=== PATIENT | female | born 1955 | race Hispanic/Latino ===

== ENCOUNTER 2017-03-24 19:04 | Emergency (ER) | payer SELFPAY ==
[~2017-03-24 19:04] MED LIST: ISOVUE-370 76%-LOCM 1 ML ONE
[2017-03-24 20:25] LABS: Hematocrit 38.8 % (36.0-47.0); Mean Platelet Volume 8.1 fL (7.4-10.4); Red Blood Cell (RBC) Count 4.28 mill/uL (4.20-5.40); White Blood Cell (WBC) Count 6.4 thou/uL (4.8-10.8)
[2017-03-24 20:37] LABS: Bilirubin Negative (Negative); Blood, Urine Negative (Negative); Glucose, Urine (Dipstick) Negative (Negative); Ketone, Urine Negative (Negative); Nitrite Negative (Negative); Protein, Urine (Dipstick) Negative (Neg-Trace); Urobilinogen 0.2 mg/dL (0.2-1.0)
[2017-03-24 20:49] LABS: ALT (SGPT) 13 U/L (8-55); AST (SGOT) 17 U/L (5-34); Alkaline Phosphatase 71 U/L (40-150); Anion Gap 10 mmol/L (10-20); BUN (Urea Nitrogen) 17 mg/dL (9.8-20.1); Bilirubin, Total 0.2 mg/dL (0.2-1.2); Calc. Creatinine Clearance 0 mL/min (70-130); Calcium 9.7 mg/dL (7.8-10.44); Carbon Dioxide 30 mmol/L (22-29); Chloride 102 mmol/L (98-107); Estimated GFR-MDRD Greater than 90; Globulin 3.2 g/dL (2.4-3.5); Lipase 12 U/L (8-78)
[2017-03-24 20:58] LABS: Neutrophil 42 % (42-75); Reactive Lymphocytes 7 % (0-10)
--- NOTE | 2017-03-24 22:36 | CT ---
CT ABDOMEN AND PELVIS WITH CONTRAST: Technique: Multiple axial tomograms were obtained through the abdomen and pelvis with IV enhancement. History: Left upper quadrant abdominal pain. History of cholecystectomy. FINDINGS: Lung bases are clear. Liver, spleen and pancreas appear unremarkable. Patient is post cholecystectomy. There is prominence of common bile duct, consistent with post cholecystectomy status. Stomach and duodenum unremarkable. There is a cyst on the superior pole of the right kidney measuring up to 5.6 cm. There is a 3 mm nono bstructing calculus in the upper pole collecting structures of the right kidney. There is no evidence of hydronephrosis. No evidence of ureteral calculus or obstruction. Small bowel loops appear normal. Appendix appears normal. Stool throughout the colon. Uterus and adne xa unremarkable. No adenopathy. IMPRESSION: No acute process identified. POS: [facility]
== END 2017-03-24 23:05 | disposition home or self-care (01) ==
LOC: ERS 19:04
DX: R10.13 Epigastric pain (principal); E11.9 Type 2 diabetes mellitus without complications; J45.909 Unspecified asthma, uncomplicated; Z79.4 Long term (current) use of insulin
CPT/HCPCS: 74177; 80053; 81003; 83690; 85025; 93005

== ENCOUNTER 2017-07-20 09:11 | Inpatient (IN) | payer SELFPAY ==
[2017-07-20 10:33] LABS: #Lymphocytes 1.1 thou/uL (1.20-3.40); #Monocytes 0.2 thou/uL (0.11-0.59); #Neutrophils 3.2 thou/uL (1.40-6.50); %Basophils 0.5 % (0.0-1.0); %Eosinophils 0.6 % (0.0-10.0); %Lymphocytes 23.7 % (21.0-51.0); %Neutrophils 70.2 % (42.0-75.0); Hemoglobin 13.4 g/dL (12.0-16.0); Mean Corpuscular HGB CONC 33.8 g/dL (32.0-36.0); Mean Corpuscular Hemoglobin 30.2 pg (27.0-31.0); Mean Corpuscular Volume 89.4 fl (81.0-99.0); Mean Platelet Volume 7.6 fL (7.4-10.4); Platelet Count 169 thou/uL (130-400); RBC Distribution Width 11.5 % (11.5-14.5); Red Blood Cell (RBC) Count 4.44 mill/uL (4.20-5.40); White Blood Cell (WBC) Count 4.6 thou/uL (4.8-10.8)
[2017-07-20 10:39] LABS: ALT (SGPT) 185 U/L (8-55); AST (SGOT) 65 U/L (5-34); Albumin 3.7 g/dL (3.4-4.8); Alkaline Phosphatase 122 U/L (40-150); Anion Gap 14 mmol/L (10-20); BUN (Urea Nitrogen) 18 mg/dL (9.8-20.1); Bilirubin, Total 0.3 mg/dL (0.2-1.2); CK (CPK) 65 U/L (29-168); Calc. Creatinine Clearance 0 mL/min (70-130); Calcium 8.4 mg/dL (7.8-10.44); Carbon Dioxide 24 mmol/L (23-31); Chloride 105 mmol/L (98-107); Estimated GFR-MDRD Greater than 90; Globulin 2.8 g/dL (2.4-3.5); Glucose 209 mg/dL (80-115); Potassium 3.6 mmol/L (3.5-5.1); Protein, Total 6.5 g/dL (6.0-8.3); Sodium 139 mmol/L (136-145)
[2017-07-20 10:45] LABS: CKMB 2.1 ng/mL (0-6.6); Troponin I Less than 0.010 ng/mL (< 0.028)
[2017-07-20] MEDS ORDERED: Ondansetron ODT 4 MG TAB SL PRN (13:15)
[2017-07-20] MEDS ORDERED: Acetaminophen 325 MG TAB PO PRN (13:15)
[2017-07-20] MEDS ORDERED: Ondansetron HCl/PF 4 MG/2 ML Vial IVP PRN (13:15)
[2017-07-20 13:45] VITALS: BMI 27.1
[2017-07-20 14:00] LABS: Troponin I Less than 0.010 ng/mL (< 0.028)
[2017-07-20] MEDS ORDERED: Dextrose 5% in Water 1,000 ML IV PRN ×2 (16:26→16:29)
[2017-07-20] MEDS ORDERED: Dextrose 50% Abboject 50 ML SYRINGE SLOW IVP PRN ×2 (16:26→16:29)
[2017-07-20] MEDS ORDERED: Insulin Regular 300 UNITS/3 ML VIAL SC PRN (16:29)
--- NOTE | 2017-07-20 16:59 | HP ---
CHIEF COMPLAINT: Tiredness, dizziness and fall. HISTORY OF PRESENT ILLNESS: This is a 62-year-old female patient, whose is here in the [facility], who for the past 2 days or so has been feeling progressive weakness, tiredness and falling down, associated with one episode of vomiting and poor appetite. The patient presented to the ER where nargis tan was noted to have atrial fibrillation with rapid ventricular response. Otherwise, no other remarka ble findings except elevated liver enzymes. The patient is now being admitted on Cardizem drip for f urther management. PAST MEDICAL AND SURGICAL HISTORY: Significant for type 2 diabetes, hypertension and status post cho lecystectomy. MEDICATIONS: Reviewed as documented on [facility]. SOCIAL HISTORY: Denies alcohol, tobacco or illicit drug use. Liver enzymes concerning for alcoholic hepatitis. The patient denies alcohol consumption. FAMILY HISTORY: Not significantly related to the presenting illness. PHYSICAL EXAMINATION: GENERAL: The patient was found not to be in any respiratory distress, hemodynamically stable. VITAL SIGNS: Afebrile, temperature 98.8, pulse 76, respiratory rate of 18, O2 saturation 100% with b lood pressure 150/56. HEENT: Unremarkable. Moist oral mucosa. NECK: Supple. No conjunctival injection or icterus. CARDIOVASCULAR SYSTEM: First and second heart sounds were heard. RESPIRATORY SYSTEM: Clear to auscultation. DIGESTIVE SYSTEM: Revealed some tenderness over the epigastric and right upper quadrant area. EXTREMITIES: No peripheral edema. SKIN: No new gross rash. LYMPHATICS: No peripheral lymphadenopathy. IMPRESSION: 1. Atrial fibrillation with rapid ventricular response, doing well on Cardizem drip. 2. Abdominal pain, query cause. The patient is status post cholecystectomy; however, cannot complet anaid rule out hepatitis. 3. Diabetes mellitus type 2. 4. Hypertension. PLAN: 1. Cardiology consultation. 2. Cardizem drip, which I do believe will easily be weaned off. 3. Hepatitis profile. 4. Further management will be dependent on the clinical course. We will fully anticoagulate this pa tient at this point pending when Cardiology will evaluate the patient and make their recommendation.
[2017-07-20 17:14] LABS: Troponin I 0.029 ng/mL (< 0.028)
[2017-07-20 17:27] LABS: HBCM Index 0.08 S/CO (0-0.79); HBSAg Index 0.27 S/CO (0-0.99); Hep A IgM AB Non-Reactive (NonReactive); Hep A IgM S/CO 0.16 S/CO (0-0.79); Hep B Surf Ag Non-Reactive S/CO (NonReactive); Hep C IgG Ab Non-Reactive (NonReactive); Hep C Index 0.08 S/CO (0-0.79); Hepatitis B Core IGM Abs Non-Reactive (NonReactive); Thyroid Stimulating Hormone 1.5528 uIU/mL (0.35-4.94)
[2017-07-20] MEDS: Gabapentin 100 MG CAP PO SCH (20:37)
[2017-07-20] MEDS: Famotidine 20 MG TAB PO SCH (20:37)
[2017-07-20] MEDS: Insulin Detemir 100 UNITS/ML 20 UNITS in Pre-Filled Syringe SC SCH (20:38)
[2017-07-20] MEDS: Enoxaparin Sodium 60 MG/0.6 ML SYRINGE SC SCH (20:38)
[2017-07-20] MEDS: Insulin Regular 300 UNITS/3 ML VIAL SC SCH (20:39)
[2017-07-20] MEDS ORDERED: Non-Formulary Item 1 EACH (Levemir Flexpen [Levemir Flexpen] 20 UNITS) SC SCH (21:00)
[2017-07-21 04:49] LABS: Anion Gap 11 mmol/L (10-20); BUN (Urea Nitrogen) 22 mg/dL (9.8-20.1); Calc. Creatinine Clearance 92 mL/min (70-130); Calcium 8.7 mg/dL (7.8-10.44); Carbon Dioxide 26 mmol/L (23-31); Chloride 108 mmol/L (98-107); Estimated GFR-MDRD Greater than 90; Potassium 3.3 mmol/L (3.5-5.1); Sodium 142 mmol/L (136-145)
[2017-07-21 04:52] LABS: Glucose 54 mg/dL (80-115)
[2017-07-21] MEDS ORDERED: Enoxaparin Sodium 40 MG/0.4 ML SYRINGE SC SCH (09:00)
[2017-07-21] MEDS: Aspirin 81 mg Enteric Coated Tablet PO SCH (09:02)
[2017-07-21] MEDS: Gabapentin 100 MG CAP PO SCH ×3 (09:02→21:20)
[2017-07-21] MEDS: Insulin Regular 300 UNITS/3 ML VIAL SC SCH ×2 (09:03→15:00)
[2017-07-21] MEDS: Famotidine 20 MG TAB PO SCH ×2 (09:03→21:20)
[2017-07-21] MEDS: Insulin Detemir 100 UNITS/ML 20 UNITS in Pre-Filled Syringe SC SCH (09:04)
[2017-07-21] MEDS: Enoxaparin Sodium 60 MG/0.6 ML SYRINGE SC SCH ×2 (09:04→21:19)
--- NOTE | 2017-07-21 10:44 | PDOC.PN ---
- Subjective Encounter Start Date: 07/21/17 Encounter Start Time: 10:42 Patient seen and examined, no new issues, no family at bedside, all questions answered. - Objective Resuscitation Status: Resuscitation Status FULL:Full Resuscitation MAR Reviewed: Yes Vital Signs & Weight: Vital Signs (12 hours) Temp Pulse Resp BP Pulse Ox 07/21/17 08:23 98.2 F 80 14 100 07/21/17 07:26 98.2 F 80 14 131/67 100 Weight Weight 138 lb 14.4 oz I&O: 07/20/17 07/21/17 07/22/17 06:59 06:59 06:59 Intake Total 155 Balance 155 Result Diagrams: 07/20/17 10:08 07/21/17 03:26 Additional Labs: Accuchecks 07/21/17 07/21/17 07/21/17 09:03 05:40 04:59 POC Glucose 278 H 117 H 52 L* 07/20/17 07/20/17 20:42 16:36 POC Glucose 286 H 130 H Phys Exam - Physical Examination Constitutional: NAD HEENT: PERRLA, moist MMs, sclera anicteric Neck: no nodes, no JVD Respiratory: no wheezing, no rales, no rhonchi Cardiovascular: no significant murmur, no rub IRRR Gastrointestinal: soft, non-tender, no distention Musculoskeletal: no edema, pulses present Dx/Plan (1) Paroxysmal atrial fibrillation Code(s): I48.0 - PAROXYSMAL ATRIAL FIBRILLATION Status: Acute (2) HTN (hypertension) Code(s): I10 - ESSENTIAL (PRIMARY) HYPERTENSION Status: Acute (3) DM II (diabetes mellitus, type II), controlled Code(s): E11.9 - TYPE 2 DIABETES MELLITUS WITHOUT COMPLICATIONS Status: Acute - Plan * cardio following * cntinue current medical management for now * possible cardioversion in AM, per patient * no changes in plan for now * DC plans in 24-48hrs if patient doing well and once cleared by cardiology * case and plan d/w patient at length, in guatem[place], she understands and agrees with this plan.
--- NOTE | 2017-07-21 11:15 | CON ---
DATE OF CONSULTATION: 07/21/2017 REASON FOR CONSULTATION: [facility] Care. CONSULTING PHYSICIAN: Dr. Palmer. HISTORY OF PRESENT ILLNESS: This is a 62-year-old female who presented yesterday with new onset atri al fibrillation with a rapid ventricular response. Symptoms started yesterday and characterized by w eakness and fatigue. She was placed on a Cardizem drip and appears to have converted over to a sinus rhythm. She has no complaints of chest pain or shortness of breath at the current time. PAST MEDICAL HISTORY: 1. Type 2 diabetes mellitus. 2. Hypertension. 3. Question of atrial fibrillation previously. PAST SURGICAL HISTORY: Cholecystectomy. SOCIAL HISTORY: Nonsmoker. Does not consume alcohol. She does daycare work. FAMILY MEDICAL HISTORY: Unremarkable. MEDICATIONS PRIOR TO ADMISSION: Gabapentin, Levemir insulin, aspirin, losartan/hydrochlorothiazide a nd Ventolin dose inhaler. REVIEW OF SYSTEMS: Twelve point review of systems otherwise negative. PHYSICAL EXAMINATION: VITAL SIGNS: Temperature 98.2, pulse 80, respirations 14, O2 sat 100%, blood pressure 131/67. GENERAL: She is a healthy appearing female, in no acute distress. HEENT: Pupils react. Sclerae icteric. Oropharynx clear. NECK: No palpable adenopathy, no JVD, no bruits. LUNGS: Clear. CARDIOVASCULAR: S1, S2 regular without murmur. ABDOMEN: Soft, nontender, nondistended. EXTREMITIES: No clubbing, cyanosis, or edema. NEUROLOGIC: Grossly intact. SKIN: Shows no lesions, bruising or jaundice. LABORATORY DATA: White blood cell count 4.6, hematocrit 39.7, platelet count 169. Sodium 142, potas sium 3.3, chloride 108, CO2 26, BUN 22, creatinine 0.6, glucose 54. ASSESSMENT: Atrial fibrillation with controlled ventricular response - appears to convert to sinus r hythm. RECOMMENDATIONS: 1. Cardiology consultation. 2. No acute pulmonary critical care recommendations. The patient can be transferred to the telemetry unit at any time given bed availability.
--- NOTE | 2017-07-21 13:44 | CON ---
DATE OF CONSULTATION: 07/21/2017 REASON FOR CONSULTATION: Atrial fibrillation. HISTORY OF PRESENT ILLNESS: Ms. Bolanos is a pleasant 62-year-old woman who recently presented with p alpitations in addition to diaphoresis. She states her blood sugar was low at the time. She also tubbs d an episode of vomiting on Friday. No chest pain or pressure noted. No other associated factors pr esent. She is now sinus rhythm. PAST MEDICAL HISTORY: Diabetes mellitus and hypertension. PAST SURGICAL HISTORY: Cholecystectomy. SOCIAL HISTORY: No current tobacco or alcohol use. FAMILY HISTORY: Negative for CAD. REVIEW OF SYSTEMS: Ten-point review of systems is reviewed and is as above negative. PHYSICAL EXAMINATION: VITAL SIGNS: Blood pressure 125/54, pulse , temperature 98.7. GENERAL: Patient is a pleasant female who is in no acute distress. The patient appears her stated age. NEUROLOGIC: The patient is alert and oriented times 3 with no focal neurologic deficits. HEENT: Sclerae without icterus. Mouth has moist mucous membranes with normal pallor. NECK: No JVD. Carotid upstroke brisk. No bruits bilaterally. LUNGS: Clear to auscultation with unlabored respirations. BACK: No scoliosis or kyphosis. CARDIAC: Regular rate and rhythm with normal S1 and S2. No S3 or S4 noted. No significant rubs, murmurs, thrills, or gallops noted throughout the precordium. PMI is not displaced. There is no parasternal heave. ABDOMEN: Soft, nontender, nondistended. No peritoneal signs present. No hepatosplenomegaly. No abnormal striae. EXTREMITIES: 2+ femoral and 2+ dorsalis pedis pulses. No cyanosis, clubbing, or edema. SKIN: No gross abnormalities. PERTINENT LABS: Hemoglobin 13.4, creatinine 0.64. Troponin negative. IMPRESSION: Atrial fibrillation. RECOMMENDATIONS: The patient's CHADS-VASc score is greater than 2. We recommend anticoagulation the rapy. Echo Doppler is pending. We would also recommend a noninvasive stress study to assess for any areas of ischemia. If her LVEF is normal and a stress study is normal, I would recommend beta block er therapy in addition to anticoagulation treatment. Otherwise, I have no recommendations.
[2017-07-21] MEDS ORDERED: Insulin Regular 300 UNITS/3 ML VIAL SC PRN (16:53)
[2017-07-22] MEDS: Insulin Detemir 100 UNITS/ML 20 UNITS in Pre-Filled Syringe SC SCH ×2 (00:30→08:29)
[2017-07-22] MEDS: Enoxaparin Sodium 60 MG/0.6 ML SYRINGE SC SCH (08:28)
[2017-07-22] MEDS: Famotidine 20 MG TAB PO SCH (08:28)
[2017-07-22] MEDS: Gabapentin 100 MG CAP PO SCH ×2 (08:28→16:00)
[2017-07-22] MEDS: Aspirin 81 mg Enteric Coated Tablet PO SCH (08:28)
--- NOTE | 2017-07-22 13:25 | PRG ---
DATE OF SERVICE: 07/22/2017 SUBJECTIVE: Luis Miguel is better, less shortness of breath. OBJECTIVE: VITAL SIGNS: Sats 100% on 2 liters, temperature 97, pulse 90, respiratory rate 18, blood pressure 13 0/75. CHEST: No wheezing. CARDIAC: Normal S1 and S2. ABDOMEN: Soft and no masses. LABORATORY: Electrolytes normal, creatinine normal. ASSESSMENT: Pulmonary embolism, deep venous thrombosis. Eliquis. Discharge home anytime. Follow up with the primary care physician. Suggest minimum of 6 months anticoagulation.
[2017-07-22 15:48] VITALS: BP 144/71; TEMP 98.2
--- NOTE | 2017-07-22 19:03 | CON ---
DATE OF SERVICE: 07/22/2017 SUBJECTIVE: Ms. Bolanos is doing well. She continues to be in sinus rhythm. Her LVEF appears normal on recent echo. OBJECTIVE: VITAL SIGNS: Blood pressure 120/70, pulse 80, respirations 20. GENERAL: Patient is a pleasant female who is in no acute distress. The patient appears her stated age. NEUROLOGIC: The patient is alert and oriented times 3 with no focal neurologic deficits. HEENT: Sclerae without icterus. Mouth has moist mucous membranes with normal pallor. NECK: No JVD. Carotid upstroke brisk. No bruits bilaterally. LUNGS: Clear to auscultation with unlabored respirations. BACK: No scoliosis or kyphosis. CARDIAC: Regular rate and rhythm with normal S1 and S2. No S3 or S4 noted. No significant rubs, murmurs, thrills, or gallops noted throughout the precordium. PMI is not displaced. There is no parasternal heave. ABDOMEN: Soft, nontender, nondistended. No peritoneal signs present. No hepatosplenomegaly. No abnormal striae. EXTREMITIES: 2+ femoral and 2+ dorsalis pedis pulses. No cyanosis, clubbing, or edema. SKIN: No gross abnormalities. HEENT: No scoliosis or kyphosis. CARDIAC: No gross abnormalities. IMPRESSION: Atrial fibrillation. RECOMMENDATIONS: Ms. Bolanos's CHADS score is greater than 2. She has a history of hypertension and diabetes. I have discussed anticoagulation type with Ms. Bolanos. I also discussed novel oral antico agulation therapy versus Coumadin. She is amenable to a novel oral anticoagulation therapy. I did d iscuss the financial concern. I will give her samples. She will follow up in the office in the next 1-2 weeks. At that point, she will decide whether she want to proceed with a novel oral anticoagula tion therapy or Coumadin.
[2017-07-22] MEDS ORDERED: Metoprolol Tartrate 25 MG TAB PO SCH (21:00)
[2017-07-23] MEDS ORDERED: Rivaroxaban 10 MG TAB PO SCH (09:00)
== END 2017-07-22 16:06 | disposition home or self-care (01) | DRG 308 ==
LOC: ERS 09:11 → IMCU/EMU 11:17 → 2SE 07-22 06:35
PROVIDERS: ADMIT Internal Medicine Nephrology; ATTEND Internal Medicine Nephrology
DX: I48.0 Paroxysmal atrial fibrillation (principal); I26.99 Other pulmonary embolism without acute cor pulmonale; T68.XXXA Hypothermia, initial encounter; I95.9 Hypotension, unspecified; E11.9 Type 2 diabetes mellitus without complications; I82.409 Acute embolism and thrombosis of unspecified deep veins of unspecified lower extremity; I10 Essential (primary) hypertension
CPT/HCPCS: 36415; 36416; 80048; 80053; 80074; 82550; 82553; 84443; 84484; 85025; 93005; 93306; 96365; 96366; J1650; J1815

== ENCOUNTER 2017-11-04 00:41 | Emergency (ER) | payer SELFPAY ==
[2017-11-04 01:27] LABS: #Eosinphils 0.3 thou/uL (0.0-0.7); #Lymphocytes 1.8 thou/uL (1.20-3.40); #Monocytes 0.6 thou/uL (0.11-0.59); #Neutrophils 4.9 thou/uL (1.40-6.50); %Basophils 0.3 % (0.0-1.0); %Eosinophils 3.6 % (0.0-10.0); %Lymphocytes 23.3 % (21.0-51.0); %Monocytes 7.3 % (0.0-10.0); %Neutrophils 65.4 % (42.0-75.0); Hemoglobin 12.5 g/dL (12.0-16.0); Mean Corpuscular HGB CONC 34.7 g/dL (32.0-36.0); Mean Corpuscular Hemoglobin 30.3 pg (27.0-31.0); Mean Corpuscular Volume 87.3 fL (78.0-98.0); Mean Platelet Volume 7.7 fL (7.4-10.4); Platelet Count 170 thou/uL (130-400); RBC Distribution Width 11.6 % (11.5-14.5); Red Blood Cell (RBC) Count 4.13 mill/uL (4.20-5.40); White Blood Cell (WBC) Count 7.5 thou/uL (4.8-10.8)
[2017-11-04 01:41] LABS: ALT (SGPT) 18 U/L (8-55); AST (SGOT) 17 U/L (5-34); Albumin 3.7 g/dL (3.4-4.8); Alkaline Phosphatase 82 U/L (40-150); Anion Gap 9 mmol/L (10-20); BUN (Urea Nitrogen) 24 mg/dL (9.8-20.1); Bilirubin, Total 0.4 mg/dL (0.2-1.2); Calc. Creatinine Clearance 0 mL/min (70-130); Calcium 9.4 mg/dL (7.8-10.44); Carbon Dioxide 30 mmol/L (23-31); Chloride 101 mmol/L (98-107); Estimated GFR-MDRD 63; Globulin 3.1 g/dL (2.4-3.5); Glucose 442 mg/dL (80-115); Lipase 11 U/L (8-78); Potassium 3.8 mmol/L (3.5-5.1); Protein, Total 6.8 g/dL (6.0-8.3); Sodium 136 mmol/L (136-145)
[2017-11-04 01:45] LABS: CKMB 1.2 ng/mL (0-6.6); Troponin I Less than 0.010 ng/mL (< 0.028)
[2017-11-04 02:32] LABS: Base Excess-Venous 3.2 mmol/L (0 (+/- 2.5)); Bicarbonate (HCO3v) 29.5 mmol/L (1.0-85.0); CO2 Tension (PvCO2) 50.7 mmHg (41.0-51.0); Calcium, Ionized 1.23 mmol/L (1.12-1.32); Hemoglobin - Calc 13.2 g/dL (12.0-18.0); O2 Tension (PvO2) 66.4 mmHg (35.0-45.0); Potassium 3.9 mmol/L (3.4-4.7); pH (Venous) 7.373 (7.35-7.45); vO2 Saturation-calc 91.9 % (94-98)
[2017-11-04] MEDS ORDERED: Insulin Regular 300 UNITS/3 ML VIAL ONE (02:54)
[2017-11-04 03:34] LABS: Bilirubin Negative (Negative); Blood, Urine Small (Negative); Clarity CLEAR (Clear); Glucose, Urine (Dipstick) >=1000 mg/dL (Negative); Leukocyte Negative (Negative); Nitrite Negative (Negative); Protein, Urine (Dipstick) Negative (Neg-Trace); Urobilinogen 0.2 mg/dL (0.2-1.0)
[2017-11-04 03:37] LABS: Bacteria/HPF None Seen HPF (None Seen); Hyaline Casts/LPF 0-3 HYALINE CAST LPF (0-3 Hyaline); Squamous Epithelial 0-3 HPF (0-3); WBC/HPF 0-3 HPF (0-3)
[2017-11-04 03:41] LABS: Specific Gravity, Urine 1.045 (1.002-1.036)
--- NOTE | 2017-11-04 09:01 | RAD ---
PORTABLE CHEST ONE VIEW: Date: 11-04-17 Time: 1:04 p.m. History: Chest pain. FINDINGS: Comparison is made with exam of 02-23-16. The heart size is normal. The aorta is tortuous. The lungs are well expanded without focal areas of c onsolidation, pneumothorax, or pleural effusions. IMPRESSION: No acute process. POS: [facility]
--- NOTE | 2017-11-04 10:13 | CT ---
PRELIMINARY REPORT/[facility]/EMERGENTY AFTER-HOURS PROCEDURE CT Abdomen and Pelvis With Intravenous Contrast CLINICAL HISTORY: 62 years old, female; Pain; Abdominal pain; Localized; Right lower quadrant (rlq); Prior surgery; Pat ient HX: Abdominal pain rlq - onset 2330 woke her up from sleep. Surgical HX of cholecystectomy TECHNIQUE: Axial computed tomography images of the abdomen and pelvis with intravenous contrast. Coronal reforma tted images were created and reviewed. COMPARISON: No relevant prior studies available. FINDINGS: Lower thorax: No acute findings. ABDOMEN: Liver: Hepatic steatosis. Gallbladder and bile ducts: Prior cholecystectomy. Pancreas: Normal. No ductal dilation. Spleen: Normal. No splenomegaly. Adrenals: Normal. No mass. Kidneys and ureters: Right renal cyst. 2 mm obstructing stone in the proximal right ureter causing mi ld obstructive uropathy. Stomach and bowel: Normal. No obstruction. No mucosal thickening. Appendix: Normal appendix. PELVIS: Bladder: Unremarkable as visualized. Reproductive: Uterus and ovaries are unremarkable. ABDOMEN and PELVIS: Intraperitoneal space: Normal. No free air. No significant fluid collection. Bones/joints: No acute fracture. No dislocation. Soft tissues: Unremarkable. Vasculature: Normal. No abdominal aortic aneurysm. Lymph nodes: Normal. No enlarged lymph nodes. IMPRESSION: 2 mm obstructing stone in the proximal right ureter causing mild obstructive uropathy. Thank you for allowing us to participate in the care of your patient. Dictated and Authenticated by: David Grande MD 11/04/2017 3:41 AM Central Time ([place] & [place]) FINAL REPORT EMERGENT AFTER HOURS CT ABDOMEN AND PELVIS WITH IV CONTRAST: DATE: 11/24/17. HISTORY: Right lower quadrant abdominal pain. Surgical history of cholecystectomy. COMPARISON: 03/24/17. IMPRESSION: 1. Partially obstructing right proximal ureteral calculus in the region of right ureteropelvic junct ion measuring 30 mm. There is resultant mild right hydronephrosis. 2. Right renal cyst. 3. Cholecystectomy. 4. No Ct evidence of appendicitis. 5. Colonic diverticulosis. A small amount of retained fecal material is seen within the colon. 6. There has been no other interval change when compared to the prior exam. 7. Findings are in agreement with the preliminary report by Marcia. POS: [facility]
[2017-11-04] MEDS ORDERED: ISOVUE-370 76%-LOCM 1 ML ONE (10:34)
--- NOTE | 2017-11-08 13:09 | EKG ---
Test Reason : Blood Pressure : / mmHG Vent. Rate : 074 BPM Atrial Rate : 074 BPM P-R Int : 170 ms QRS Dur : 084 ms QT Int : 420 ms P-R-T Axes : 036 -05 009 degrees QTc Int : 466 ms Normal sinus rhythm Normal ECG Confirmed by RAFAT OLIVAREZ ([id number]), editor news GUNNER THOMAS ([id number]) on 11/08/2017 1:09:46 PM Referred By: SHER Confirmed By:RAFAT OLIVAREZ
== END 2017-11-04 04:05 | disposition home or self-care (01) ==
LOC: ERS 00:41
DX: N13.2 Hydronephrosis with renal and ureteral calculous obstruction (principal); E11.9 Type 2 diabetes mellitus without complications; R31.9 Hematuria, unspecified; Z79.4 Long term (current) use of insulin; Z79.899 Other long term (current) drug therapy
CPT/HCPCS: 36415; 36416; 71045; 74177; 80053; 81003; 81015; 82010; 82330; 82553; 82803; 83690; 84484; 85025; 87086; 93005; 96361; 96372; 96374; J1815; J2270

== ENCOUNTER 2017-11-15 17:54 | Emergency (ER) | payer SELFPAY ==
[2017-11-15 18:19] LABS: Bilirubin Negative (Negative); Blood, Urine Small (Negative); Clarity CLEAR (Clear); Glucose, Urine (Dipstick) >=1000 mg/dL (Negative); Leukocyte Negative (Negative); Nitrite Negative (Negative); Protein, Urine (Dipstick) Negative (Neg-Trace); Specific Gravity, Urine 1.014 (1.002-1.036); Urobilinogen 0.2 mg/dL (0.2-1.0)
[2017-11-15 18:22] LABS: Bacteria/HPF None Seen HPF (None Seen); Hyaline Casts/LPF 0-3 HYALINE CAST LPF (0-3 Hyaline); Squamous Epithelial None Seen HPF (0-3); WBC/HPF None Seen HPF (0-3)
[2017-11-15 18:26] LABS: #Eosinphils 0.2 thou/uL (0.0-0.7); #Lymphocytes 2.4 thou/uL (1.20-3.40); #Monocytes 0.6 thou/uL (0.11-0.59); #Neutrophils 5.8 thou/uL (1.40-6.50); %Basophils 0.5 % (0.0-1.0); %Eosinophils 1.9 % (0.0-10.0); %Lymphocytes 26.7 % (21.0-51.0); %Monocytes 6.2 % (0.0-10.0); %Neutrophils 64.7 % (42.0-75.0); Mean Corpuscular Hemoglobin 30.3 pg (27.0-31.0); Mean Corpuscular Volume 86.5 fL (78.0-98.0); Mean Platelet Volume 7.2 fL (7.4-10.4); Platelet Count 211 thou/uL (130-400); RBC Distribution Width 11.6 % (11.5-14.5); White Blood Cell (WBC) Count 8.9 thou/uL (4.8-10.8)
[2017-11-15 18:45] LABS: ALT (SGPT) 30 U/L (8-55); AST (SGOT) 15 U/L (5-34); Albumin 4.1 g/dL (3.4-4.8); Alkaline Phosphatase 97 U/L (40-150); Anion Gap 14 mmol/L (10-20); BUN (Urea Nitrogen) 17 mg/dL (9.8-20.1); Bilirubin, Total 0.6 mg/dL (0.2-1.2); Calc. Creatinine Clearance 0 mL/min (70-130); Calcium 9.6 mg/dL (7.8-10.44); Carbon Dioxide 26 mmol/L (23-31); Chloride 98 mmol/L (98-107); Estimated GFR-MDRD 63; Glucose 348 mg/dL (80-115); Potassium 4.3 mmol/L (3.5-5.1); Protein, Total 7.1 g/dL (6.0-8.3); Sodium 134 mmol/L (136-145)
[2017-11-15] MEDS ORDERED: Ketorolac Tromethamine 30 MG/ML VIAL ONE (20:23)
== END 2017-11-15 20:49 | disposition home or self-care (01) ==
LOC: ERS 17:54
DX: N13.2 Hydronephrosis with renal and ureteral calculous obstruction (principal); E11.9 Type 2 diabetes mellitus without complications; J45.909 Unspecified asthma, uncomplicated; Z79.899 Other long term (current) drug therapy; Z79.01 Long term (current) use of anticoagulants; Z79.4 Long term (current) use of insulin
CPT/HCPCS: 36415; 80053; 81003; 81015; 85025; 96374; J1885

== ENCOUNTER 2018-03-20 19:46 | Emergency (ER) | payer SELFPAY ==
[2018-03-20 20:18] LABS: #Basophils 0.1 thou/uL (0.0-0.2); #Eosinphils 0.2 thou/uL (0.0-0.7); #Lymphocytes 2.8 thou/uL (1.20-3.40); #Monocytes 0.7 thou/uL (0.11-0.59); #Neutrophils 5.1 thou/uL (1.40-6.50); %Basophils 0.8 % (0.0-1.0); %Monocytes 7.4 % (0.0-10.0); %Neutrophils 57.8 % (42.0-75.0); Hemoglobin 14.5 g/dL (12.0-16.0); Mean Corpuscular HGB CONC 33.4 g/dL (32.0-36.0); Mean Corpuscular Hemoglobin 28.9 pg (27.0-31.0); Mean Corpuscular Volume 86.7 fL (78.0-98.0); Mean Platelet Volume 8.4 fL (7.4-10.4); Platelet Count 185 thou/uL (130-400); RBC Distribution Width 12.1 % (11.5-14.5); Red Blood Cell (RBC) Count 5.02 mill/uL (4.20-5.40); White Blood Cell (WBC) Count 8.8 thou/uL (4.8-10.8)
[2018-03-20 20:41] LABS: ALT (SGPT) 19 U/L (8-55); AST (SGOT) 19 U/L (5-34); Albumin 4.1 g/dL (3.4-4.8); Alkaline Phosphatase 104 U/L (40-150); Anion Gap 15 mmol/L (10-20); BUN (Urea Nitrogen) 22 mg/dL (9.8-20.1); Bilirubin, Total 0.3 mg/dL (0.2-1.2); CK (CPK) 76 U/L (29-168); Calc. Creatinine Clearance 0 mL/min (70-130); Calcium 9.7 mg/dL (7.8-10.44); Carbon Dioxide 30 mmol/L (23-31); Chloride 100 mmol/L (98-107); Estimated GFR-MDRD 79; Globulin 3.6 g/dL (2.4-3.5); Glucose 204 mg/dL (80-115); Lipase 12 U/L (8-78); Potassium 3.9 mmol/L (3.5-5.1); Protein, Total 7.7 g/dL (6.0-8.3); Sodium 141 mmol/L (136-145)
[2018-03-20 20:43] LABS: CKMB 1.9 ng/mL (0-6.6); Troponin I Less than 0.010 ng/mL (< 0.028)
--- NOTE | 2018-03-20 21:13 | RAD ---
PA AND LATERAL VIEWS OF THE CHEST: 03/20/18 HISTORY: Chest pain. FINDINGS: Comparison made with the exam of 07/21/13. The heart size is normal. The lungs are expanded without focal areas of consolidation, pneumothoraces or pleural effusions. No acute osseous abnormalities are seen. IMPRESSION: No radiographic evidence of acute cardiopulmonary process. POS: [facility]
[2018-03-20] MEDS ORDERED: Ketorolac Tromethamine 30 MG/ML VIAL ONE (22:53)
[2018-03-20] MEDS ORDERED: Lidocaine Viscous Sol 2% 15 ml UD Cup ONE (22:54)
[2018-03-20] MEDS ORDERED: Mag-Al 1200 mg/1200 mg/30 ML UDCUP ONE (22:54)
[2018-03-20 23:55] LABS: Troponin I Less than 0.010 ng/mL (< 0.028)
== END 2018-03-21 00:56 | disposition home or self-care (01) ==
LOC: ERS 19:46
DX: R07.89 Other chest pain (principal); M62.838 Other muscle spasm; R11.0 Nausea; I48.91 Unspecified atrial fibrillation; E11.9 Type 2 diabetes mellitus without complications; J45.909 Unspecified asthma, uncomplicated; Z79.4 Long term (current) use of insulin; Z79.899 Other long term (current) drug therapy
CPT/HCPCS: 36415; 71046; 80053; 82553; 83690; 84484; 85025; 93005; 96374; J1885

== ENCOUNTER 2018-06-21 14:55 | Emergency (ER) | payer SELFPAY ==
[2018-06-21 15:50] LABS: #Eosinphils 0.2 thou/uL (0.0-0.7); #Monocytes 0.3 thou/uL (0.11-0.59); #Neutrophils 3.2 thou/uL (1.40-6.50); %Basophils 0.6 % (0.0-1.0); %Eosinophils 3.3 % (0.0-10.0); %Monocytes 5.1 % (0.0-10.0); Hemoglobin 13.2 g/dL (12.0-16.0); Mean Corpuscular HGB CONC 34.1 g/dL (32.0-36.0); Mean Corpuscular Volume 87.8 fL (78.0-98.0); Mean Platelet Volume 8.7 fL (7.4-10.4); Platelet Count 177 thou/uL (130-400); RBC Distribution Width 11.7 % (11.5-14.5); White Blood Cell (WBC) Count 6.7 thou/uL (4.8-10.8)
[2018-06-21 16:10] LABS: ALT (SGPT) 15 U/L (8-55); AST (SGOT) 15 U/L (5-34); Albumin 3.9 g/dL (3.4-4.8); Alkaline Phosphatase 120 U/L (40-150); Anion Gap 15 mmol/L (10-20); BUN (Urea Nitrogen) 23 mg/dL (9.8-20.1); Bilirubin, Total 0.3 mg/dL (0.2-1.2); Calc. Creatinine Clearance 0 mL/min (70-130); Calcium 9.5 mg/dL (7.8-10.44); Carbon Dioxide 25 mmol/L (23-31); Chloride 101 mmol/L (98-107); Estimated GFR-MDRD 71; Globulin 3.3 g/dL (2.4-3.5); Glucose 394 mg/dL (80-115); Lipase 13 U/L (8-78); Potassium 4.1 mmol/L (3.5-5.1); Protein, Total 7.2 g/dL (6.0-8.3); Sodium 137 mmol/L (136-145)
[2018-06-21] MEDS ORDERED: Morphine 4 MG/ML VIAL ONE (16:13)
--- NOTE | 2018-06-21 16:15 | RAD ---
CHEST PA AND LATERAL: HISTORY: Cough. COMPARISON: 03/20/2018 FINDINGS: The heart size is normal. The lungs are well expanded without focal areas of consolidation, pneumoth oraces, or pleural effusions. There are mild degenerative changes in the thoracic spine. IMPRESSION: No radiographic evidence of acute cardiopulmonary process. POS: [facility]
--- NOTE | 2018-06-21 17:30 | CT ---
CT ABDOMEN AND PELVIS WITH IV CONTRAST: 06/21/2018 HISTORY: Upper as well as right lower abdominal pain. Symptoms have been present for one week. COMPARISON: 11/04/2017 FINDINGS: There is mild scarring seen at the medial right lung base. The lung bases are otherwise clear. Post cholecystectomy changes are again present. The liver demonstrates diminished attenuation, likel y attributable to diffuse fatty infiltration. A right renal cyst is again present. The spleen, pancreas, bilateral adrenal glands, left kidney, and urinary bladder demonstrate a normal CT appearance. Calcifications are again seen in a small-sized uterus. The appendix is visualized and normal in caliber. Free fluid, fluid collection, or lymphadenopathy is seen in the abdomen or pelvis. Degenerative changes are noted in the spine. There is suggestion of partial fusion of the right sacr oiliac joint, with degenerative changes in the sacroiliac joints bilaterally. The stomach is distended with fluid and particulate matter, which is probably related to recent inges tion of a meal. The common duct is dilated, likely related to reservoir affect, and is stable from prior study. There are focal areas of stranding in the subcutaneous adipose layer of the anterior pelvis, which ma y be related to injections in these regions. Clinical correlation is recommended. IMPRESSION: 1. No acute findings are seen in the abdomen or pelvis. 2. Fatty infiltration of the liver. 3. Cholecystectomy. 4. Right renal cyst. 5. Additional incidental findings as described above. POS: [facility]
[2018-06-21] MEDS ORDERED: Insulin Regular 300 UNITS/3 ML VIAL ONE (17:46)
== END 2018-06-21 19:10 | disposition home or self-care (01) ==
LOC: ERS 14:55
DX: R10.11 Right upper quadrant pain (principal); R10.12 Left upper quadrant pain; E11.65 Type 2 diabetes mellitus with hyperglycemia; J45.909 Unspecified asthma, uncomplicated; I48.91 Unspecified atrial fibrillation; Z79.01 Long term (current) use of anticoagulants; Z79.899 Other long term (current) drug therapy; Z79.4 Long term (current) use of insulin
CPT/HCPCS: 71046; 74177; 80053; 83690; 85025; 96374; 96375; J1815; J2270; Q9966

== ENCOUNTER 2018-09-24 16:36 | Emergency (ER) | payer SELFPAY | END 2018-09-24 17:05 | disposition home or self-care (01) | LOC: ERS 16:36 | DX: T68.XXXA Hypothermia, initial encounter (principal); E11.649 Type 2 diabetes mellitus with hypoglycemia without coma | CPT/HCPCS: 36416; 99285 ==

== ENCOUNTER 2018-11-25 18:18 | Emergency (ER) | payer SELFPAY ==
--- NOTE | 2018-11-25 19:07 | RAD ---
Portable chest: HISTORY: Chest pain COMPARISON: 09/24/2018 FINDINGS: Lung eller are clear. Heart and mediastinum appear unremarkable. Vascularity is normal. Visualized osseous structures unremarkable. IMPRESSION: No acute finding
[2018-11-25 19:09] LABS: #Eosinphils 0.2 thou/uL (0.0-0.7); #Lymphocytes 2.9 thou/uL (1.20-3.40); #Monocytes 0.5 thou/uL (0.11-0.59); #Neutrophils 3.3 thou/uL (1.40-6.50); %Basophils 0.3 % (0.0-1.0); %Eosinophils 2.7 % (0.0-10.0); %Monocytes 7.8 % (0.0-10.0); %Neutrophils 47.2 % (42.0-75.0); Hemoglobin 13.7 g/dL (12.0-16.0); Mean Corpuscular HGB CONC 34.7 g/dL (32.0-36.0); Mean Corpuscular Hemoglobin 29.9 pg (27.0-31.0); Mean Platelet Volume 8.7 fL (7.4-10.4); Platelet Count 164 thou/uL (130-400); RBC Distribution Width 11.8 % (11.5-14.5); Red Blood Cell (RBC) Count 4.58 mill/uL (4.20-5.40)
[2018-11-25 19:29] LABS: ALT (SGPT) 20 U/L (8-55); AST (SGOT) 16 U/L (5-34); Albumin 4.1 g/dL (3.4-4.8); Alkaline Phosphatase 105 U/L (40-150); Anion Gap 12 mmol/L (10-20); BUN (Urea Nitrogen) 21 mg/dL (9.8-20.1); Bilirubin, Total 0.5 mg/dL (0.2-1.2); Calc. Creatinine Clearance 0 mL/min (70-130); Carbon Dioxide 29 mmol/L (23-31); Chloride 99 mmol/L (98-107); Estimated GFR-MDRD 77; Globulin 3.1 g/dL (2.4-3.5); Glucose 268 mg/dL (80-115); Lipase 13 U/L (8-78); Potassium 4.2 mmol/L (3.5-5.1); Protein, Total 7.2 g/dL (6.0-8.3); Sodium 136 mmol/L (136-145)
[2018-11-25 19:29] LABS: Bilirubin Negative (Negative); Blood, Urine Negative (Negative); Clarity Clear (Clear); Glucose, Urine (Dipstick) Greater than 1000 mg/dL (Negative); Leukocyte 75 Leu/uL (Negative); Nitrite Negative (Negative); Protein, Urine (Dipstick) 10 mg/dL (Neg-Trace); Squamous Epithelial 0-3 HPF (0-3)
[2018-11-25 19:30] LABS: Bacteria/HPF 1+ HPF (None Seen)
[2018-11-25] MEDS ORDERED: Lidocaine 2% Viscous Solution 10 ML, Aluminum & Magnesium Hydroxide 30 ML SSW SCH (19:30)
[2018-11-25] MEDS ORDERED: Lidocaine Viscous Sol 2% 15 ml UD Cup ONE (19:38)
[2018-11-25] MEDS ORDERED: Mag-Al 1200 mg/1200 mg/30 ML UDCUP ONE (19:38)
== END 2018-11-25 21:05 | disposition home or self-care (01) ==
LOC: ERS 18:18
DX: N39.0 Urinary tract infection, site not specified (principal); E11.9 Type 2 diabetes mellitus without complications; I48.91 Unspecified atrial fibrillation; J45.909 Unspecified asthma, uncomplicated; Z79.4 Long term (current) use of insulin; Z79.899 Other long term (current) drug therapy
CPT/HCPCS: 36415; 71045; 80053; 81003; 81015; 83690; 84484; 85025; 87086; 93005

== ENCOUNTER 2019-04-18 07:54 | Emergency (ER) | payer SELFPAY ==
[2019-04-18 08:44] LABS: #Lymphocytes 1.1 thou/uL (1.20-3.40); #Monocytes 0.5 thou/uL (0.11-0.59); #Neutrophils 11.2 thou/uL (1.40-6.50); %Basophils 0.1 % (0.0-1.0); %Eosinophils 0.2 % (0.0-10.0); %Lymphocytes 8.7 % (21.0-51.0); %Monocytes 3.8 % (0.0-10.0); %Neutrophils 87.2 % (42.0-75.0); Hemoglobin 14.2 g/dL (12.0-16.0); Mean Corpuscular HGB CONC 34.5 g/dL (32.0-36.0); Mean Corpuscular Hemoglobin 30.4 pg (27.0-31.0); Mean Corpuscular Volume 88.1 fL (78.0-98.0); Mean Platelet Volume 8.6 fL (7.4-10.4); Platelet Count 168 thou/uL (130-400); RBC Distribution Width 11.9 % (11.5-14.5); Red Blood Cell (RBC) Count 4.66 mill/uL (4.20-5.40); White Blood Cell (WBC) Count 12.8 thou/uL (4.8-10.8)
[2019-04-18 09:07] LABS: ALT (SGPT) 111 U/L (8-55); AST (SGOT) 79 U/L (5-34); Alkaline Phosphatase 138 U/L (40-110); Anion Gap 14 mmol/L (10-20); BUN (Urea Nitrogen) 16 mg/dL (9.8-20.1); Calc. Creatinine Clearance 0 mL/min (70-130); Calcium 9.6 mg/dL (7.8-10.44); Carbon Dioxide 24 mmol/L (23-31); Chloride 99 mmol/L (98-107); Estimated GFR-MDRD 76; Globulin 3.4 g/dL (2.4-3.5); Glucose 356 mg/dL (80-115); Lipase 4 U/L (8-78); Potassium 4.4 mmol/L (3.5-5.1); Protein, Total 7.4 g/dL (6.0-8.3); Sodium 133 mmol/L (136-145)
[2019-04-18] MEDS ORDERED: Acetaminophen 500 MG TAB ONE (09:38)
[2019-04-18] MEDS ORDERED: Ketorolac Tromethamine 30 MG/ML VIAL ONE (09:40)
[2019-04-18 10:20] LABS: Bacteria/HPF None Seen HPF (None Seen); Bilirubin Negative (Negative); Blood, Urine Trace (Negative); Clarity Clear (Clear); Glucose, Urine (Dipstick) Greater than 1000 mg/dL (Negative); Leukocyte Negative Leu/uL (Negative); Nitrite Negative (Negative); Protein, Urine (Dipstick) Negative (Neg-Trace); RBC/HPF 0-3 HPF (0-3); Squamous Epithelial 0-3 HPF (0-3); Urobilinogen Normal mg/dL (Less than 2); WBC/HPF 0-3 HPF (0-3)
--- NOTE | 2019-04-18 11:17 | CT ---
EXAM: Abdomen and pelvic CT scan with contrast: HISTORY: Upper quadrant abdominal pain COMPARISON: 06/21/2018 FINDINGS: The visualized lung bases are clear. Liver: Unremarkable. Gallbladder:Status post cholecystectomy without intrahepatic ductal dilatation. Pancreas:Unremarkable Spleen:Unremarkable. Adrenal glands:Unremarkable. Kidneys:No renal calculus or acute obstruction. 4.3 cm stable right renal cyst. Fairly marked abnormal colonic wall thickening involving the cecum, right colon, and extending up int o the hepatic flexure and adjacent transverse colon evidence for nonspecific colitis. No CT evidence for acute appendicitis. The urinary bladder is unremarkable. Reproductive system:Unremarkable No abscess, adenopathy, or abnormal fluid collection within the abdomen or pelvis. Some nonspecific subcutaneous fat stranding somewhat overlying the left ischial region IMPRESSION: Abnormal colonic wall thickening involving the cecum, right colon, hepatic flexure and extending adair sverse colon evidence for nonspecific colitis.
[2019-04-18] MEDS ORDERED: Iopamidol-370 76% 500 ML 1 ML ONE (11:21)
--- NOTE | 2019-04-18 12:34 | RAD ---
FRONTAL RADIOGRAPH CHEST: Date: 04/18/19 COMPARISON: 11/25/18. HISTORY: Abdominal pain. FINDINGS: Lungs appear clear. Heart and mediastinal contours are unremarkable. IMPRESSION: No acute findings. POS: [facility]
== END 2019-04-18 11:58 | disposition home or self-care (01) ==
LOC: ERS 07:54
DX: K52.9 Noninfective gastroenteritis and colitis, unspecified (principal); I48.91 Unspecified atrial fibrillation; E11.9 Type 2 diabetes mellitus without complications; Z79.899 Other long term (current) drug therapy; Z79.4 Long term (current) use of insulin
CPT/HCPCS: 36415; 71045; 74177; 80053; 81003; 81015; 83690; 84484; 85025; 87804; 93005; 96361; 96374; J1885; Q9967

== ENCOUNTER 2019-04-18 19:38 | Inpatient (IN) | payer SELFPAY ==
[2019-04-18] MEDS ORDERED: Morphine 4 MG/ML VIAL ONE (21:59)
[2019-04-18] MEDS ORDERED: Ondansetron PF 4 MG/2 ML Vial ONE (21:59)
[2019-04-18 22:18] LABS: Hemoglobin 13.3 g/dL (12.0-16.0); Mean Corpuscular HGB CONC 34.3 g/dL (32.0-36.0); Mean Corpuscular Hemoglobin 30.1 pg (27.0-31.0); Mean Corpuscular Volume 87.7 fL (78.0-98.0); Mean Platelet Volume 8.5 fL (7.4-10.4); Platelet Count 155 thou/uL (130-400); RBC Distribution Width 11.8 % (11.5-14.5); Red Blood Cell (RBC) Count 4.41 mill/uL (4.20-5.40); White Blood Cell (WBC) Count 12.9 thou/uL (4.8-10.8)
[2019-04-18 22:38] LABS: Band 2 % (5-11); Lymphocytes 3 % (21-51); MDiff Complete? YES; Neutrophil 95 % (42-75); Platelet Morphology Comment Appears Adequate; RBC Morphology Normal
[2019-04-18 22:39] LABS: ALT (SGPT) 78 U/L (8-55); AST (SGOT) 40 U/L (5-34); Albumin 3.8 g/dL (3.4-4.8); Alkaline Phosphatase 124 U/L (40-110); Anion Gap 18 mmol/L (10-20); BUN (Urea Nitrogen) 14 mg/dL (9.8-20.1); Bilirubin, Total 0.8 mg/dL (0.2-1.2); Calc. Creatinine Clearance 0 mL/min (70-130); Calcium 8.9 mg/dL (7.8-10.44); Carbon Dioxide 21 mmol/L (23-31); Chloride 100 mmol/L (98-107); Estimated GFR-MDRD 71; Globulin 3.5 g/dL (2.4-3.5); Glucose 353 mg/dL (80-115); Potassium 4.5 mmol/L (3.5-5.1); Protein, Total 7.3 g/dL (6.0-8.3); Sodium 134 mmol/L (136-145)
[2019-04-18] MEDS ORDERED: metroNIDAZOLE 500 MG/100 ML BAG ONE (23:57)
[2019-04-19 00:27] LABS: Magnesium 1.7 mg/dL (1.6-2.6)
[2019-04-19] MEDS ORDERED: Ondansetron PF 4 MG/2 ML Vial IVP PRN (00:31)
[2019-04-19] MEDS ORDERED: Acetaminophen 650 MG Suppository PR PRN (00:31)
[2019-04-19] MEDS ORDERED: Ondansetron ODT 4 MG TAB PO PRN (00:31)
[2019-04-19] MEDS ORDERED: Dextrose 5% in Water 1,000 ML IV PRN (00:56)
[2019-04-19] MEDS ORDERED: HumaLOG 300 UNITS/3 ML VIAL SC PRN (00:56)
[2019-04-19] MEDS ORDERED: Dextrose 50% Abboject 50 ML SYRINGE SLOW IVP PRN (00:56)
[2019-04-19 01:21] VITALS: BMI 28.8
[2019-04-19] MEDS: Sodium Chloride 0.9% 1,000 ML IV SCH ×3 (01:32→20:12)
--- NOTE | 2019-04-19 01:59 | HP ---
TIME OF ASSESSMENT: 0100 hours. CHIEF COMPLAINT: Abdominal pain. PRIMARY CARE PHYSICIAN: Dr. Tinajero. HISTORY OF PRESENT ILLNESS: Ms. Bolanos is a pleasant 63-year-old woman, who was seen in the emergency department on 04/18/2019 in the a.m. with complaints of abdominal pain. The patient underwent a CT of the abdomen and pelvis that showed abnormal colonic wall thickening involving the cecum, right colon, hepatic flexure and extending to transverse colon concerning for nonspecific colitis. The patient was discharged home on oral antibiotics. She says after arriving home she took the next dose of antibiotics and in an hour and a half later, began to have recurring abdominal pain, nausea, and vomiting. The patient then began to experience chills, which prompted her to return to the emergency department. On arrival, she was noted to be slightly tachycardic with a heart rate of 105. She had some low-grade temperature of 99.9. There was concern for poor tolerance to oral antibiotics. Therefore, she is being admitted for IV antibiotics. She has undergone repeat laboratory studies showing a white count of 12.9. Her hemoglobin is 13.3, hematocrit 38.7, platelets 155. BUN is 14, creatinine 0.87, GFR 71. It is slightly worse than renal function yesterday morning. Glucose 353. Calcium 8.9, total bilirubin 0.8, AST 40, ALT 70, alkaline phosphatase 124. LFT slightly improved from yesterday morning. Lipase yesterday morning was 4. Chest x-ray was done during her initial visit, which showed no acute findings. REVIEW OF SYSTEMS: At this present time, the patient states that her pain has improved from when she first came in and her nausea and vomiting have resolved. She has been given an IV dose of Cipro and metronidazole. She has received 2 L of IV fluids and also treated with Zofran for her nausea and morphine for her pain. Currently, her pain is in the epigastric region and in the suprapubic region. She states it is about a 5/10 in severity. The patient denies having any diarrhea. Denies any constipation. States she has been having large amounts of normal stool. Denies any black stools or bright red blood per rectum. No hematemesis. Denies any headaches or dizziness. All other review of systems negative. PAST MEDICAL HISTORY: 1. History of atrial fibrillation. 2. Type 2 diabetes. 3. GERD. 4. Abdominal hernia. 5. 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 PAST SURGICAL HISTORY: 1. Cholecystectomy. 2. Amputation. SOCIAL HISTORY: She lives with her family. Denies any alcohol consumption or illicit drug use. No tobacco use. ALLERGIES: NO KNOWN DRUG ALLERGIES. CURRENT MEDICATIONS: 1. Januvia. 2. Atorvastatin. 3. Ranitidine. 4. Levemir. 5. Keflex. 6. Sucralfate. 7. Cipro. 8. Flagyl. 9. Ibuprofen. 10. Tylenol. PHYSICAL EXAMINATION: GENERAL: The patient appears well developed, well nourished, and in no acute distress. VITAL SIGNS: Temperature 99, pulse 102, blood pressure 131/69, respirations 16, and O2 saturation 94% on room air. HEENT: Normocephalic and atraumatic. Pupils are equal, round, and reactive to light. Sclerae icterus. Oropharynx is clear. NECK: Supple. No lymphadenopathy. Full range of motion. LUNGS: Clear to auscultation bilaterally. CARDIAC: Regular rate and rhythm. ABDOMEN: Soft. Mild discomfort with palpation of the epigastric region and suprapubic region. No rigidity. Some guarding with palpation of the suprapubic region. No renal angle tenderness. EXTREMITIES: No lower leg swelling or edema. NEUROLOGIC: Alert and oriented x3. No neuro deficits. SKIN: Warm and dry. INVESTIGATIONS: As mentioned above in HPI. IMPRESSION AND PLAN: Mr. Bolanos is a very pleasant 63-year-old woman, who is being admitted for management of the followin. Colitis. The patient not tolerating p.o. antibiotics at home and returning with recurrent pain and persistent nausea, vomiting. Symptoms under control at this present time. We will continue with ondansetron. She has received IV antibiotics in the ED, which we will continue. Pain much improved at a 4/10 in severity. She does have some suprapubic discomfort with palpation, though she denies any urinary symptoms and urinalysis was done earlier today showing no evidence of urinary tract infection. We will go ahead and obtain a postvoid bladder scan to ensure she is not retaining. It is more likely associated with the underlying colitis. 2. Type 2 diabetes mellitus. Hold home medications for now as her oral intake has decreased today. Cover with insulin sliding scale. Monitor blood glucose. 3. Tachycardia. Patient with history of atrial fibrillation. We will obtain an EKG. She is more likely slightly tachycardic due to dehydration. 4. Hyperlipidemia. Resume home medications once verified. 5. Gastroesophageal reflux disease. Resume home medications once verified. 6. Code status, full. Her surrogate decision maker is her son, Anton Bolanos. 7. Deep venous thrombosis prophylaxis with mechanical SCDs. The patient's case discussed with the attending, who agrees with plan of care as described above. Job ID: [id number]
[2019-04-19] MEDS: HumaLOG 300 UNITS/3 ML VIAL SC PRN ×3 (05:36→16:55)
[2019-04-19 06:04] LABS: #Monocytes 0.5 thou/uL (0.11-0.59); #Neutrophils 7.9 thou/uL (1.40-6.50); %Basophils 0.1 % (0.0-1.0); %Eosinophils 0.1 % (0.0-10.0); %Lymphocytes 10.8 % (21.0-51.0); Hemoglobin 12.2 g/dL (12.0-16.0); Mean Corpuscular Hemoglobin 29.9 pg (27.0-31.0); Mean Platelet Volume 8.9 fL (7.4-10.4); Platelet Count 139 thou/uL (130-400); RBC Distribution Width 11.8 % (11.5-14.5); Red Blood Cell (RBC) Count 4.07 mill/uL (4.20-5.40); White Blood Cell (WBC) Count 9.5 thou/uL (4.8-10.8)
[2019-04-19 06:29] LABS: ALT (SGPT) 105 U/L (8-55); AST (SGOT) 88 U/L (5-34); Albumin 3.5 g/dL (3.4-4.8); Alkaline Phosphatase 121 U/L (40-110); Anion Gap 14 mmol/L (10-20); BUN (Urea Nitrogen) 9 mg/dL (9.8-20.1); Bilirubin, Total 0.8 mg/dL (0.2-1.2); Calc. Creatinine Clearance 98 mL/min (70-130); Calcium 8.2 mg/dL (7.8-10.44); Carbon Dioxide 21 mmol/L (23-31); Chloride 104 mmol/L (98-107); Estimated GFR-MDRD Greater than 90; Globulin 2.9 g/dL (2.4-3.5); Glucose 257 mg/dL (80-115); Potassium 3.8 mmol/L (3.5-5.1); Protein, Total 6.4 g/dL (6.0-8.3); Sodium 135 mmol/L (136-145)
[2019-04-19] MEDS: metroNIDAZOLE 500 MG in Premix Bag 1 BAG IVPB SCH ×2 (08:10→15:51)
[2019-04-19] MEDS: Famotidine/PF 20 mg/2ml Vial SLOW IVP SCH ×2 (08:11→20:11)
[2019-04-19] MEDS: Acetaminophen 325 MG TAB PO PRN ×3 (09:19→20:11)
--- NOTE | 2019-04-19 09:32 | PDOC.HOSPP ---
- Subjective Encounter Date: 04/19/19 Encounter Time: 15:30 Subjective: Patient with some improvement in lower abdominal cramping and pain, but still hurting. No N/V/D currently. No fever. - Objective Vital Signs & Weight: Vital Signs (12 hours) Temp Pulse Resp BP Pulse Ox 04/19/19 07:46 98.6 F 87 18 158/74 H 96 04/19/19 04:00 98.2 F 98 19 173/83 H 95 04/19/19 01:20 98.1 F 107 H 18 170/79 H 95 Weight Weight 147 lb 4.8 oz I&O: 04/18/19 04/19/19 04/20/19 06:59 06:59 06:59 Intake Total 302 Balance 302 Result Diagrams: 04/19/19 05:27 04/19/19 05:27 Additional Labs: Accuchecks 04/19/19 04:23 POC Glucose 267 H Hospitalist ROS - Review of Systems Constitutional: denies: fever, chills Respiratory: denies: cough, dry, shortness of breath Cardiovascular: denies: chest pain, palpitations Gastrointestinal: reports: abdominal pain. denies: nausea, vomiting, diarrhea, constipation - Medication Medications: Active Medications Generic Name Dose Route Start Last Admin Trade Name Freq PRN Reason Stop Dose Admin Acetaminophen 650 mg 04/19/19 00:31 04/19/19 09:19 Tylenol PO 650 mg Q4H PRN Administration Headache/Fever/Mild Pain (1-3) Famotidine 20 mg 04/19/19 09:00 04/19/19 08:11 Pepcid SLOW IVP 20 mg Q12HR RED Administration Sodium Chloride 1,000 mls @ 65 mls/hr 04/19/19 00:45 04/19/19 01:32 Normal Saline 0.9% IV 1,000 mls .[id number] RED Administration Metronidazole 500 mg/ Device 100 mls @ 100 mls/hr 04/19/19 08:00 04/19/19 08: 10 IVPB 100 mls 0800,1600,2359 RED Administration Insulin Human Lispro 0 units 04/19/19 00:56 04/19/19 05:36 Humalog SC 4 unit .MILD SLIDING SCALE PRN Administration Mild Correctional Scale - Exam General Appearance: NAD ENT: normocephalic atraumatic, moist mucosa Heart: RRR, no murmur Respiratory: CTAB, no wheezes, no rales, no ronchi, normal chest expansion Gastrointestinal: soft, non-distended, normal bowel sounds Gastrointestinal - other findings: mild TTP lower abdomen, no guarding or rebound Extremities: no cyanosis, no clubbing, no edema Psychiatric: normal affect, normal behavior, A&O x 3 Hosp A/P (1) Sepsis Code(s): A41.9 - SEPSIS, UNSPECIFIED ORGANISM Status: Acute Plan: improved (2) Colitis presumed infectious Code(s): K52.9 - NONINFECTIVE GASTROENTERITIS AND COLITIS, UNSPECIFIED Status : Acute Plan: failed outpatient antibiotics, admitted for IV abx and pain control, on Cipro and Metronidazole since 04/19/2019 (3) DM II (diabetes mellitus, type II), controlled Code(s): E11.9 - TYPE 2 DIABETES MELLITUS WITHOUT COMPLICATIONS Status: Chronic (4) HTN (hypertension) Code(s): I10 - ESSENTIAL (PRIMARY) HYPERTENSION Status: Chronic Plan: EKG due to tachycardia (5) Paroxysmal atrial fibrillation Code(s): I48.0 - PAROXYSMAL ATRIAL FIBRILLATION Status: Chronic - Plan continue antibiotics, out of bed/ambulate H&P from [place] overnight reviewed and agree. Pulmonology Consult: Meds - Medications MAR Reviewed: Yes Medications: Current Medications Acetaminophen (Tylenol) 650 mg PO Q4H PRN PRN Reason: Headache/Fever/Mild Pain (1-3) Last Admin: 04/19/19 09:19 Dose: 650 mg Acetaminophen (Tylenol) 650 mg SD Q4H PRN PRN Reason: Headache/Fever/Mild Pain (1-3) Dextrose/Water (Dextrose 50%) 25 gm SLOW IVP PRN PRN PRN Reason: Hypoglycemia Famotidine (Pepcid) 20 mg SLOW IVP Q12HR [facility] Last Admin: 04/19/19 08:11 Dose: 20 mg Glucagon (Glucagon) 1 mg IM PRN PRN PRN Reason: Hypoglycemia Sodium Chloride (Normal Saline 0.9%) 1,000 mls @ 65 mls/hr IV .[id number] [facility] Last Admin: 04/19/19 01:32 Dose: 1,000 mls Ciprofloxacin/Dextrose 400 mg/ (Device) 200 mls @ 200 mls/hr IVPB 0100,1300 [facility] Metronidazole 500 mg/ Device 100 mls @ 100 mls/hr IVPB 0800,1600,2359 RED Last Admin: 04/19/19 08:10 Dose: 100 mls Dextrose/Water (D5w) 1,000 mls @ 0 mls/hr IV .Q0M PRN PRN Reason: Hypoglycemia Insulin Human Lispro (Humalog) 0 units SC .MILD SLIDING SCALE PRN PRN Reason: Mild Correctional Scale Last Admin: 04/19/19 05:36 Dose: 4 unit Insulin Human Lispro (Humalog) 0 units SC .BEDTIME SLIDING SC PRN PRN Reason: Bedtime Correctional Scale Ondansetron HCl (Zofran Odt) 4 mg PO Q6H PRN PRN Reason: Nausea/Vomiting Ondansetron HCl (Zofran) 4 mg IVP Q6H PRN PRN Reason: Nausea/Vomiting Sodium Chloride (Flush - Normal Saline) 10 ml IVF Q12HR PRN PRN Reason: Saline Flush Sodium Chloride (Flush - Normal Saline) 10 ml IVF PRN PRN PRN Reason: Saline Flush - Allergies Allergies/Adverse Reactions: Allergies Allergy/AdvReac Type Severity Reaction Status Date / Time No Known Drug Allergies Allergy Verified 04/19/19 01:26
[2019-04-20] MEDS ORDERED: hydrALAZINE 20 MG/ML VIAL SLOW IVP PRN ×2 (00:19→01:54)
[2019-04-20] MEDS: metroNIDAZOLE 500 MG in Premix Bag 1 BAG IVPB SCH ×3 (00:27→15:18)
[2019-04-20] MEDS: Acetaminophen 325 MG TAB PO PRN (01:36)
[2019-04-20] MEDS ORDERED: hydrALAZINE 20 MG/ML VIAL SLOW IVP SCH (02:15)
[2019-04-20] MEDS: Polyethylene Glycol OPTH DROP 15 ML BOT EA EYE PRN ×2 (02:19→15:20)
[2019-04-20] MEDS: HYDROcodone/Acetaminophen 5/325 mg Tablet PO PRN ×4 (02:40→20:43)
[2019-04-20] MEDS ORDERED: Promethazine HCl 25 MG in Sodium Chloride 0.9% 50 ML IVPB PRN (04:55)
[2019-04-20] MEDS: HumaLOG 300 UNITS/3 ML VIAL SC PRN (05:21)
[2019-04-20] MEDS: Pregabalin 25 MG CAP PO SCH ×3 (08:25→20:42)
[2019-04-20] MEDS: Famotidine/PF 20 mg/2ml Vial SLOW IVP SCH ×2 (08:26→20:42)
[2019-04-20] MEDS: Metoprolol Tartrate 25 MG TAB PO SCH ×2 (08:26→20:41)
[2019-04-20] MEDS: Sodium Chloride 0.9% 1,000 ML IV SCH (08:30)
--- NOTE | 2019-04-20 08:40 | PDOC.HOSPP ---
- Subjective Encounter Date: 04/20/19 Encounter Time: 10:00 Subjective: Continued lower abdominal pain, no nausea or vomiting, some soft but not diarrheal bowel movement - Objective Vital Signs & Weight: Vital Signs (12 hours) Temp Pulse Resp BP Pulse Ox 04/20/19 07:47 98.0 F 94 20 166/80 H 99 04/20/19 04:00 97.9 F 92 20 147/78 H 97 04/20/19 02:16 74 04/20/19 01:40 174/74 H 04/20/19 00:28 74 04/19/19 23:48 98.0 F 74 20 184/74 H 97 Weight Weight 147 lb 4.8 oz I&O: 04/19/19 04/20/19 04/21/19 06:59 06:59 06:59 Intake Total 302 4267 Balance 302 4267 Result Diagrams: 04/19/19 05:27 04/19/19 05:27 Additional Labs: Accuchecks 04/20/19 04/19/19 04/19/19 04:47 19:27 16:47 POC Glucose 244 H 207 H 216 H 04/19/19 11:59 POC Glucose 210 H Hospitalist ROS - Review of Systems Respiratory: denies: cough, shortness of breath Cardiovascular: denies: chest pain, palpitations Gastrointestinal: reports: abdominal pain. denies: nausea, vomiting, diarrhea, constipation Genitourinary: denies: dysuria - Medication Medications: Active Medications Generic Name Dose Route Start Last Admin Trade Name Freq PRN Reason Stop Dose Admin Acetaminophen 650 mg 04/19/19 00:31 04/20/19 01:36 Tylenol PO 650 mg Q4H PRN Administration Headache/Fever/Mild Pain (1-3) Hydrocodone Bitart/Acetaminophen 1 tab 04/20/19 00:20 04/20/19 08:29 [place] 5/325 PO 1 tab Q4H PRN Administration Mild-Moderate Pain (1-5) Famotidine 20 mg 04/19/19 09:00 04/20/19 08:26 Pepcid SLOW IVP 20 mg Q12HR RED Administration Sodium Chloride 1,000 mls @ 65 mls/hr 04/19/19 00:45 04/20/19 08:30 Normal Saline 0.9% IV 1,000 mls .[id number] RED Administration Ciprofloxacin/Dextrose 400 mg/ 200 mls @ 200 mls/hr 04/19/19 13:00 04/20/19 00:38 Device IVPB 200 mls 0100,1300 RED Administration Metronidazole 500 mg/ Device 100 mls @ 100 mls/hr 04/19/19 08:00 04/20/19 08: 31 IVPB 100 mls 0800,1600,2359 RED Administration Promethazine HCl 25 mg/ Sodium 51 mls @ 204 mls/hr 04/20/19 04:55 04/20/19 05 :18 Chloride IVPB 51 mls Q8H PRN Administration Nausea/Vomiting Insulin Human Lispro 0 units 04/19/19 00:56 04/20/19 05:21 Humalog SC 3 unit .MILD SLIDING SCALE PRN Administration Mild Correctional Scale Insulin Human Lispro 0 units 04/19/19 00:56 04/19/19 20:17 Humalog SC 2 unit .BEDTIME SLIDING SC PRN Administration Bedtime Correctional Scale Metoprolol Tartrate 12.5 mg 04/20/19 09:00 04/20/19 08:26 Lopressor PO 12.5 mg BID RED Administration Ondansetron HCl 4 mg 04/19/19 00:31 04/20/19 02:23 Zofran IVP 4 mg Q6H PRN Administration Nausea/Vomiting Pregabalin 25 mg 04/20/19 09:00 04/20/19 08:25 Lyrica PO 25 mg TID RED Administration Propylene Glycol 2 drop 04/20/19 01:52 04/20/19 02:19 Systane Opth Drop 15ml Bot EA EYE 2 drop Q4HR PRN Administration Dry Eyes - Exam General Appearance: NAD Heart: RRR, no murmur, no gallops, no rubs Respiratory: CTAB, no wheezes, no rales, no ronchi Gastrointestinal: soft, non-distended, normal bowel sounds, no palpable masses Gastrointestinal - other findings: mild TTP LLQ Skin: normal turgor Psychiatric: normal affect, normal behavior, A&O x 3 Hosp A/P (1) Sepsis Code(s): A41.9 - SEPSIS, UNSPECIFIED ORGANISM Status: Acute (2) Colitis presumed infectious Code(s): K52.9 - NONINFECTIVE GASTROENTERITIS AND COLITIS, UNSPECIFIED Status : Acute (3) DM II (diabetes mellitus, type II), controlled Code(s): E11.9 - TYPE 2 DIABETES MELLITUS WITHOUT COMPLICATIONS Status: Chronic Plan: Resume home insulin and meds (4) HTN (hypertension) Code(s): I10 - ESSENTIAL (PRIMARY) HYPERTENSION Status: Chronic Plan: resume home meds (5) Paroxysmal atrial fibrillation Code(s): I48.0 - PAROXYSMAL ATRIAL FIBRILLATION Status: Chronic - Plan continue antibiotics, out of bed/ambulate likely transition to oral abx tomorrow and then home
[2019-04-20] MEDS ORDERED: Non-Formulary Item 1 EACH (Levemir Flexpen [Levemir Flexpen] 20 UNITS) SC SCH (09:00)
[2019-04-20] MEDS: Famotidine 20 MG TAB PO SCH ×2 (10:06→20:41)
[2019-04-20] MEDS: metFORMIN 500 MG TAB PO SCH (10:13)
[2019-04-20] MEDS: Gabapentin 100 MG CAP PO SCH ×2 (10:14→20:41)
[2019-04-20] MEDS: Rivaroxaban 10 MG TAB PO SCH (10:14)
[2019-04-20] MEDS: Alogliptin 6.25 MG TAB PO SCH (10:14)
[2019-04-20] MEDS: Insulin Glargine 20 UNITS in Pre-Filled Syringe 1 EACH SC SCH (12:24)
[2019-04-20] MEDS ORDERED: Insulin Glargine 20 UNITS in Pre-Filled Syringe 1 EACH SC SCH (21:00)
[2019-04-21] MEDS: metroNIDAZOLE 500 MG in Premix Bag 1 BAG IVPB SCH ×2 (00:14→08:48)
[2019-04-21 05:31] LABS: #Eosinphils 0.1 thou/uL (0.0-0.7); #Lymphocytes 1.2 thou/uL (1.20-3.40); #Monocytes 0.4 thou/uL (0.11-0.59); #Neutrophils 3.3 thou/uL (1.40-6.50); %Basophils 0.2 % (0.0-1.0); %Eosinophils 1.9 % (0.0-10.0); %Lymphocytes 24.6 % (21.0-51.0); %Monocytes 7.5 % (0.0-10.0); %Neutrophils 65.9 % (42.0-75.0); Mean Corpuscular HGB CONC 33.9 g/dL (32.0-36.0); Mean Corpuscular Hemoglobin 29.6 pg (27.0-31.0); Mean Corpuscular Volume 87.5 fL (78.0-98.0); Mean Platelet Volume 8.3 fL (7.4-10.4); Platelet Count 173 thou/uL (130-400); RBC Distribution Width 11.6 % (11.5-14.5); Red Blood Cell (RBC) Count 4.37 mill/uL (4.20-5.40)
[2019-04-21 05:39] LABS: Anion Gap 11 mmol/L (10-20); BUN (Urea Nitrogen) 8 mg/dL (9.8-20.1); Calc. Creatinine Clearance 89 mL/min (70-130); Calcium 8.6 mg/dL (7.8-10.44); Carbon Dioxide 26 mmol/L (23-31); Chloride 102 mmol/L (98-107); Estimated GFR-MDRD 86; Glucose 228 mg/dL (80-115); Potassium 3.3 mmol/L (3.5-5.1); Sodium 136 mmol/L (136-145)
[2019-04-21] MEDS: HumaLOG 300 UNITS/3 ML VIAL SC PRN (05:52)
[2019-04-21 08:00] VITALS: BP 175/77; TEMP 97.6
[2019-04-21] MEDS: Sodium Chloride 0.9% 1,000 ML IV SCH (08:42)
[2019-04-21] MEDS: Alogliptin 6.25 MG TAB PO SCH (08:43)
[2019-04-21] MEDS: metFORMIN 500 MG TAB PO SCH (08:44)
[2019-04-21] MEDS: Metoprolol Tartrate 25 MG TAB PO SCH (08:44)
[2019-04-21] MEDS: Acetaminophen 325 MG TAB PO PRN (08:44)
[2019-04-21] MEDS: Rivaroxaban 10 MG TAB PO SCH (08:44)
[2019-04-21] MEDS: Gabapentin 100 MG CAP PO SCH (08:45)
[2019-04-21] MEDS: Famotidine 20 MG TAB PO SCH (08:45)
[2019-04-21] MEDS: Insulin Glargine 20 UNITS in Pre-Filled Syringe 1 EACH SC SCH (08:49)
[2019-04-21] MEDS: Famotidine/PF 20 mg/2ml Vial SLOW IVP SCH (09:24)
[2019-04-21] MEDS: Pregabalin 25 MG CAP PO SCH (09:33)
--- NOTE | 2019-04-21 11:13 | PDOC.HOSPP ---
- Subjective Encounter Date: 04/21/19 Encounter Time: 12:10 Subjective: Patient feeling significantly better. Still with pain in left abdomen. Soft, non -diarrheal stool. No N/V. Some ZAMUDIO left side of head since last night, better with some Tylenol. - Objective Vital Signs & Weight: Vital Signs (12 hours) Temp Pulse Resp BP Pulse Ox 04/21/19 07:59 97.6 F 81 20 175/77 H 96 04/21/19 00:01 98.3 F 81 20 133/61 94 L Weight Weight 147 lb 4.8 oz I&O: 04/20/19 04/21/19 04/22/19 06:59 06:59 06:59 Intake Total 4213 3900 Balance 4267 3900 Result Diagrams: 04/21/19 04:56 04/21/19 04:56 Additional Labs: Accuchecks 04/21/19 04/20/19 04/20/19 04:47 19:33 16:22 POC Glucose 250 H 151 H 258 H 04/20/19 11:34 POC Glucose 165 H Hospitalist ROS - Review of Systems Constitutional: denies: fever Eyes: denies: vision change Respiratory: denies: cough, shortness of breath Cardiovascular: denies: chest pain, palpitations, orthopnea Gastrointestinal: reports: abdominal pain. denies: nausea, vomiting, diarrhea, constipation Other: headache - Medication Medications: Active Medications Generic Name Dose Route Start Last Admin Trade Name Freq PRN Reason Stop Dose Admin Acetaminophen 650 mg 04/19/19 00:31 04/21/19 08:44 Tylenol PO 650 mg Q4H PRN Administration Headache/Fever/Mild Pain (1-3) Hydrocodone Bitart/Acetaminophen 1 tab 04/20/19 00:20 04/20/19 20:43 [place] 5/325 PO 1 tab Q4H PRN Administration Mild-Moderate Pain (1-5) Alogliptin Benzoate 12.5 mg 04/20/19 09:00 04/21/19 08:43 Alogliptin PO 12.5 mg DAILY RED Administration Famotidine 20 mg 04/19/19 09:00 04/21/19 09:24 Pepcid SLOW IVP Not Given Q12HR RED Famotidine 20 mg 04/20/19 09:00 04/21/19 08:45 Pepcid PO 20 mg BID RED Administration Gabapentin 100 mg 04/20/19 09:00 04/21/19 08:45 Neurontin PO 100 mg BID RED Administration HCTZ/Losartan Potassium 1 tab 04/20/19 09:00 04/21/19 08:43 Hyzaar 50/12.5 PO 1 tab DAILY RED Administration Sodium Chloride 1,000 mls @ 65 mls/hr 04/19/19 00:45 04/21/19 08:42 Normal Saline 0.9% IV 1,000 mls .[id number] RED Administration Ciprofloxacin/Dextrose 400 mg/ 200 mls @ 200 mls/hr 04/19/19 13:00 04/21/19 00:31 Device IVPB 200 mls 0100,1300 RED Administration Metronidazole 500 mg/ Device 100 mls @ 100 mls/hr 04/19/19 08:00 04/21/19 08: 48 IVPB 100 mls 0800,1600,2359 RED Administration Promethazine HCl 25 mg/ Sodium 51 mls @ 204 mls/hr 04/20/19 04:55 04/20/19 05 :18 Chloride IVPB 51 mls Q8H PRN Administration Nausea/Vomiting Insulin Glargine 20 units/ 0.2 mls @ 0 mls/hr 04/20/19 09:00 04/21/19 08:49 Miscellaneous Medication SC 0.2 mls QAM RED Administration Insulin Glargine 20 units/ 0.2 mls @ 0 mls/hr 04/20/19 21:00 04/20/19 20:46 Miscellaneous Medication SC 0.2 mls HS RED Administration Insulin Human Lispro 0 units 04/19/19 00:56 04/21/19 05:52 Humalog SC 3 unit .MILD SLIDING SCALE PRN Administration Mild Correctional Scale Insulin Human Lispro 0 units 04/19/19 00:56 04/19/19 20:17 Humalog SC 2 unit .BEDTIME SLIDING SC PRN Administration Bedtime Correctional Scale Metformin HCl 1,000 mg 04/20/19 09:00 04/21/19 08:44 Glucophage PO 1,000 mg DAILY RED Administration Metoprolol Tartrate 12.5 mg 04/20/19 09:00 04/21/19 08:44 Lopressor PO 12.5 mg BID RED Administration Ondansetron HCl 4 mg 04/19/19 00:31 04/20/19 02:23 Zofran IVP 4 mg Q6H PRN Administration Nausea/Vomiting Pregabalin 25 mg 04/20/19 09:00 04/21/19 09:33 Lyrica PO 25 mg TID RED Administration Propylene Glycol 2 drop 04/20/19 01:52 04/20/19 15:20 Systane Opth Drop 15ml Bot EA EYE 2 drop Q4HR PRN Administration Dry Eyes Rivaroxaban 10 mg 04/20/19 09:00 04/21/19 08:44 Xarelto PO 10 mg DAILY RED Administration - Exam General Appearance: NAD Eye: PERRL, anicteric sclera ENT: normocephalic atraumatic, moist mucosa Heart: RRR, no murmur, no gallops Respiratory: CTAB, no wheezes, no rales, no ronchi Gastrointestinal: soft, non-distended, normal bowel sounds, no palpable masses, no hepatomegaly, no splenomegaly, no guarding, no rigidity. negative: voluntary guarding Gastrointestinal - other findings: TTP LLQ and LUQ Psychiatric: normal affect, normal behavior, A&O x 3 Hosp A/P (1) Sepsis Code(s): A41.9 - SEPSIS, UNSPECIFIED ORGANISM Status: Resolved (2) Colitis presumed infectious Code(s): K52.9 - NONINFECTIVE GASTROENTERITIS AND COLITIS, UNSPECIFIED Status : Acute (3) DM II (diabetes mellitus, type II), controlled Code(s): E11.9 - TYPE 2 DIABETES MELLITUS WITHOUT COMPLICATIONS Status: Chronic (4) HTN (hypertension) Code(s): I10 - ESSENTIAL (PRIMARY) HYPERTENSION Status: Chronic (5) Paroxysmal atrial fibrillation Code(s): I48.0 - PAROXYSMAL ATRIAL FIBRILLATION Status: Chronic - Plan continue antibiotics, out of bed/ambulate transition to oral abx for 8 more days, f/u with pcp in 1-2 weeks, d/c home
[2019-04-21] MEDS ORDERED: Potassium Chloride 20 MEQ TAB PO SCH (11:15)
--- NOTE | 2019-04-22 06:43 | DIS ---
DATE OF ADMISSION: 04/19/2019 DATE OF DISCHARGE: 04/21/2019 PRIMARY CARE PHYSICIAN: Malinda Tinajero MD REASON FOR ADMISSION: Colitis refractory to outpatient antibiotics. DIAGNOSES AT DISCHARGE: 1. Sepsis, resolved. 2. Infectious colitis. 3. Diabetes mellitus type 2, insulin dependent. 4. Hypertension. 5. Paroxysmal atrial fibrillation. PROCEDURES: CT scan of the abdomen and pelvis with contrast done in the emergency room the day before admission showing abnormal colonic wall thickening involving the cecum, right colon, hepatic flexure and extending transverse colon, evidence for nonspecific colitis. CONSULTATIONS: None. SUMMARY OF HOSPITAL COURSE: This is a 63-year-old female, who presented to the emergency department the day before admission with complaint of abdominal pain. She had a CT scan with above results. The patient was discharged home on oral antibiotics. On arriving home, she took the next dose of antibiotics, but began having recurring abdominal pain, nausea and vomiting. The patient returned to the ER. She was found to have tachycardia and leukocytosis with a diagnosis of sepsis. She was given IV antibiotics, IV fluids, antiemetics and pain medicines, and admitted to the hospital. The patient improved over the next 2 days. Her pain improved markedly. She did still have some tenderness and pain in the left side of her abdomen. No more nausea or vomiting. No fevers. She had some soft, but not diarrheal bowel movements. She was tolerating p.o. food and fluids. She is being transitioned over to oral antibiotics and discharged home. DISCHARGE MANAGEMENT: Discharged home. ACTIVITY: As tolerated. DIET: Diabetic diet. Avoid spicy or fatty foods right now until her infection improves. FOLLOWUP: Follow up with Dr. Tinajero in 1 to 2 weeks. DISCHARGE MEDICATIONS: 1. Ciprofloxacin 500 mg twice a day, 8 tablets dispensed. 2. Metronidazole 500 mg 3 times a day, 12 tablets dispensed. 3. Ondansetron 4 mg every 6 hours as needed for nausea and vomiting, 15 tablets dispensed. 4. Tramadol 50 mg every 6 hours as needed for pain, 20 tablets dispensed. 5. Continue famotidine 20 mg twice a day. 6. Gabapentin 100 mg twice a day. 7. Metoprolol tartrate 12.5 mg twice a day. 8. Lyrica one cap three times a day. 9. Xarelto 10 mg daily. 10. Regular insulin 20 units subcu 3 times a day. 11. Levemir 20 units subcu twice a day. 12. Losartan/hydrochlorothiazide 50/12.5 mg one tablet daily. 13. Janumet mg one tablet twice daily. Job ID: [id number]
== END 2019-04-21 16:22 | disposition home or self-care (01) | DRG 872 ==
LOC: ERS 19:38 → T4-A 04-19 01:17 → OBSVTOIN 04-19 01:17
PROVIDERS: ADMIT Internal Medicine; ATTEND Internal Medicine
DX: A41.9 Sepsis, unspecified organism (principal); A09 Infectious gastroenteritis and colitis, unspecified; E78.5 Hyperlipidemia, unspecified; K21.9 Gastro-esophageal reflux disease without esophagitis; E11.9 Type 2 diabetes mellitus without complications; I48.0 Paroxysmal atrial fibrillation; Z90.49 Acquired absence of other specified parts of digestive tract; Z79.899 Other long term (current) drug therapy; Z79.4 Long term (current) use of insulin; Z89.022 Acquired absence of left finger(s)
CPT/HCPCS: 36415; 36416; 80048; 80053; 83605; 83690; 83735; 85025; J0360; J0744; J1815; J2270; J2405; J2550; S0028

== ENCOUNTER 2020-02-25 21:19 | Emergency (ER) | payer SELFPAY ==
--- NOTE | 2020-02-25 21:57 | RAD ---
PA AND LATERAL CHEST: 02/25/20 HISTORY: Cough. Heart size and mediastinum are within normal limits. The lungs are clear of any infiltrative process. No significant bony findings. IMPRESSION: No active intrathoracic disease. POS: OFF
[2020-02-26] MEDS ORDERED: Benzonatate 100 MG CAP ONE (00:23)
== END 2020-02-26 00:15 | disposition home or self-care (01) ==
LOC: ERS 21:19
DX: J20.9 Acute bronchitis, unspecified (principal); I48.91 Unspecified atrial fibrillation; E11.9 Type 2 diabetes mellitus without complications
CPT/HCPCS: 71046

== ENCOUNTER 2020-04-01 09:31 | Inpatient (IN) | payer OTHER, SELFPAY ==
[~2020-04-01 09:31] MED LIST changes: -ISOVUE-370 76%-LOCM 1 ML ONE; +Iopamidol-370 76% 500 ML 1 ML ONE
[2020-04-01 10:06] LABS: #Lymphocytes 2.1 thou/uL (1.20-3.40); #Monocytes 0.3 thou/uL (0.11-0.59); #Neutrophils 3.5 thou/uL (1.40-6.50); %Basophils 0.4 % (0.0-1.0); %Eosinophils 0.2 % (0.0-10.0); %Lymphocytes 35.2 % (21.0-51.0); %Monocytes 5.7 % (0.0-10.0); %Neutrophils 58.5 % (42.0-75.0); Hemoglobin 15.6 g/dL (12.0-16.0); Mean Corpuscular HGB CONC 33.7 g/dL (32.0-36.0); Mean Corpuscular Hemoglobin 29.1 pg (27.0-31.0); Mean Corpuscular Volume 86.4 fL (78.0-98.0); Mean Platelet Volume 8.7 fL (7.4-10.4); Platelet Count 154 thou/uL (130-400); RBC Distribution Width 12.1 % (11.5-14.5); Red Blood Cell (RBC) Count 5.34 mill/uL (4.20-5.40); White Blood Cell (WBC) Count 5.9 thou/uL (4.8-10.8)
--- NOTE | 2020-04-01 10:11 | RAD ---
Portable frontal chest radiograph: 04/01/2020 COMPARISON: 04/18/2019 HISTORY: Chest pain FINDINGS: Lungs are clear. Heart and mediastinal contours appear within normal limits. IMPRESSION: No acute findings.
[2020-04-01 10:30] LABS: ALT (SGPT) 19 U/L (8-55); AST (SGOT) 17 U/L (5-34); Albumin 4.1 g/dL (3.4-4.8); Alkaline Phosphatase 84 U/L (40-110); Anion Gap 18 mmol/L (10-20); BUN (Urea Nitrogen) 19 mg/dL (9.8-20.1); Bilirubin, Total 0.5 mg/dL (0.2-1.2); CK (CPK) 32 U/L (29-168); Calc. Creatinine Clearance 0 mL/min (70-130); Calcium 9.5 mg/dL (7.8-10.44); Carbon Dioxide 25 mmol/L (23-31); Chloride 97 mmol/L (98-107); Estimated GFR-MDRD 72; Globulin 3.6 g/dL (2.4-3.5); Glucose 313 mg/dL (80-115); Lipase 11 U/L (8-78); Potassium 3.8 mmol/L (3.5-5.1); Protein, Total 7.7 g/dL (6.0-8.3); Sodium 136 mmol/L (136-145)
[2020-04-01 10:32] LABS: Bacteria/HPF None Seen HPF (None Seen); Bilirubin Negative (Negative); Blood, Urine Negative (Negative); Clarity Clear (Clear); Glucose, Urine (Dipstick) Greater than 1000 mg/dL (Negative); Ketone, Urine 150 mg/dL (Negative); Leukocyte Negative Leu/uL (Negative); Mucous/LPF 1+ LPF (<2+); Nitrite Negative (Negative); Protein, Urine (Dipstick) 30 mg/dL (Neg-Trace); RBC/HPF 0-3 HPF (0-3); Specific Gravity, Urine 1.034 (1.002-1.036); Squamous Epithelial 0-3 HPF (0-3); Urobilinogen Normal mg/dL (Less than 2); WBC/HPF 0-3 HPF (0-3); pH, Urine 5.5 (5.0-9.0)
[2020-04-01 10:52] LABS: CKMB 0.9 ng/mL (0-6.6)
--- NOTE | 2020-04-01 11:06 | CT ---
CT angiogram chest: 04/01/2020 COMPARISON: None HISTORY: Elevated d-dimer, pain, assess for pulmonary arterial embolism TECHNIQUE: Axial CT imaging is obtained at 2.5 mm intervals through the chest with intravenous contra st using CT angiogram protocol. Coronal and sagittal 3-D reformatted imaging obtained. FINDINGS: There is a prominent partially imaged cyst emanating from the upper pole of the right kidne y. The hepatic parenchyma is hypodense, evidence of steatosis. No pleural, pericardial, or mediastinal fluid is noted. No axillary, hilar, or mediastinal lymphadenopathy is seen. Mildly promin ent lymph nodes are seen within the pretracheal/precarinal region as well as the prevascular region and AP window. The imaged aorta demonstrates no acute findings. There is proximal abdominal aortic atherosclerotic c alcification. There is no pulmonary arterial filling defect appreciated to suggest the presence of acute pulmonary embolism. There are subtle vague areas of peripheral groundglass opacity within the left lower lobe centrally on image 61. The left lung appears grossly unremarkable otherwise. There are subtle vague areas of peripheral groundglass opacity within the lateral right upper lobe on axial image 38 as well as within the superior lateral aspect of the right middle lobe on axial image 51. Similar subtle peripheral groundglass opacity noted within the right lower lobe on axial im age 74 and 64 as well as 56. No endobronchial lesion is evident. No acute osseous abnormality. IMPRESSION: Subtle areas of pulmonary parenchymal groundglass opacity, particularly on the right. In the proper clinical setting, findings are suspicious for atypical infectious pneumonitis, such as Covid 19. No evidence for acute pulmonary arterial embolism.
[2020-04-01] MEDS ORDERED: cefTRIAXone\\ROCEPHIN 2 GM VIAL ONE (11:52)
[2020-04-01] MEDS ORDERED: Aspirin Chewable 81 MG TAB ONE (11:52)
[2020-04-01] MEDS ORDERED: Nitroglycerin 2% Ointment 1 INCH/1 GM Packet ONE (11:52)
[2020-04-01] MEDS ORDERED: Sodium Chloride 0.9% 0 ML ONE (11:52)
[2020-04-01] MEDS ORDERED: Dexamethasone 10 MG/ML VIAL ONE (11:55)
[2020-04-01] MEDS ORDERED: Enoxaparin Sodium 60 MG/0.6 ML SYRINGE ONE (11:55)
[2020-04-01] MEDS ORDERED: Azithromycin 500 MG VIAL ONE (11:55)
[2020-04-01] MEDS ORDERED: Sodium Chloride 0.9% 100 ML ONE (11:55)
--- NOTE | 2020-04-01 12:28 | PDOC.HHP ---
Hospitalist HPI - History of Present Illness Epigastric pain History of Present Illness: Ms. Bolanos is a 64-year-old female with a past medical history of type 2 diabetes on insulin, atrial fibrillation on Xarelto, hypertension, hyperlipidemia, peripheral neuropathy, GERD who presented to the emergency room on 04/01/2020 for epigastric pain and generalized weakness. Patient reports that she has felt malaise and fatigue for the past 5 days. The second day she developed this fatigue she also felt vague abdominal discomfort. Patient reports that this pain is intermittent will last for a few hours and go up into her chest. She endorses mild worsening of the pain when she takes a deep breath. She denies any shortness of breath or respiratory problems. She denies fever, chills, night sweats. She denies any changes in vision, numbness, weakness. She has noticed no relation to meals, but has noticed a decreased appetite. She denies nausea vomiting diarrhea. Denies melena, hematochezia, hematuria or dysuria. She has no known exposure to Covid. In the emergency room initial vital signs 141/94, 96, 17, 99.2, 97% on room air. EKG showed normal sinus rhythm initial troponin indeterminate at 0.034. BNP less than 10. H&H 15.6/46.2. WBC 5.9. BUN/CR 19/0.8. Sodium 136, potassium 3.8. AST/ALT 17/19. Lipase 11. UA showed protein and glucosuria but no signs of infection. D-dimer elevated at 0.65. Patient underwent a CT PE ED which was negative for pulmonary embolism or aortic pathology. CT scan of the chest however did reveal bilateral patchy infiltrates concerning for COVID-19 pneumonia. In the emergency room patient received 325 mg of aspirin, Decadron, Lovenox, ceftriaxone and azithromycin, 1 L normal saline as well as Nitropaste. Hospitalist ROS - Review of Systems Constitutional: reports: weakness, malaise. denies: fever, chills, sweats, other Eyes: denies: vision change ENT: denies: ear pain, nose discharge, nose congestion, throat pain Respiratory: reports: pleuritic pain. denies: cough, shortness of breath Cardiovascular: reports: chest pain. denies: palpitations, orthopnea, edema, light headedness Gastrointestinal: reports: abdominal pain. 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 - Family History Other Family History: Patient denies history of cardiac disease - Social History Smoking Status: Never smoker Alcohol: reports: None Drugs: reports: none Living Situation: With Family Activity level: independent ambulation - Exam General Appearance: NAD, awake alert Eye: PERRL, anicteric sclera ENT: normocephalic atraumatic, no oropharyngeal lesions, moist mucosa Neck: supple, symmetric, no JVD, no thyromegaly, no lymphadenopathy, no carotid bruit Heart: RRR, no murmur, no gallops, no rubs, normal peripheral pulses Respiratory: CTAB, no wheezes, no rales, no ronchi, normal chest expansion, no tachypnea, normal percussion Gastrointestinal: soft, non-tender, non-distended, normal bowel sounds, no palpable masses, no hepatomegaly, no splenomegaly, no bruit Extremities: no cyanosis, no clubbing, no edema Skin: normal turgor, no lesions, no rashes Neurological: cranial nerve grossly intact, normal sensation to touch, no weakness, no focal deficits, no new deficit Musculoskeletal: normal tone, normal strength, no muscle wasting Psychiatric: normal affect, normal behavior, A&O x 3 Hospitalist Results - Labs Result Diagrams: 04/01/20 09:49 04/01/20 09:49 Lab results: WBC 5.9 thou/uL (4.8-10.8) 04/01/20 09:49 Hgb 15.6 g/dL (12.0-16.0) 04/01/20 09:49 Hct 46.2 % (36.0-47.0) 04/01/20 09:49 MCV 86.4 fL (78.0-98.0) 04/01/20 09:49 Plt Count 154 thou/uL (130-400) 04/01/20 09:49 Neutrophils % 58.5 % (42.0-75.0) 04/01/20 09:49 Sodium 136 mmol/L (136-145) 04/01/20 09:49 Potassium 3.8 mmol/L (3.5-5.1) 04/01/20 09:49 Chloride 97 mmol/L (98-107) L 04/01/20 09:49 Carbon Dioxide 25 mmol/L (23-31) 04/01/20 09:49 BUN 19 mg/dL (9.8-20.1) 04/01/20 09:49 Creatinine 0.80 mg/dL (0.6-1.1) 04/01/20 09:49 Glucose 313 mg/dL (80-115) H 04/01/20 09:49 Calcium 9.5 mg/dL (7.8-10.44) 04/01/20 09:49 Total Bilirubin 0.5 mg/dL (0.2-1.2) 04/01/20 09:49 AST 17 U/L (5-34) 04/01/20 09:49 ALT 19 U/L (8-55) 04/01/20 09:49 Alkaline Phosphatase 84 U/L (40-110) 04/01/20 09:49 Creatine Kinase 32 U/L (29-168) 04/01/20 09:49 CK-MB (CK-2) 0.9 ng/mL (0-6.6) 04/01/20 09:49 Troponin I 0.034 ng/mL (< 0.028) H 04/01/20 09:49 B-Natriuretic Peptide Less than 10.0 pg/mL (0-100) 04/01/20 09:49 Serum Total Protein 7.7 g/dL (6.0-8.3) 04/01/20 09:49 Albumin 4.1 g/dL (3.4-4.8) 04/01/20 09:49 Lipase 11 U/L (8-78) 04/01/20 09:49 Urine Ketones 150 mg/dL (Negative) A 04/01/20 10:07 Urine Blood Negative (Negative) 04/01/20 10:07 Urine Nitrite Negative (Negative) 04/01/20 10:07 Ur Leukocyte Esterase Negative Cristina/uL (Negative) 04/01/20 10:07 Urine RBC 0-3 HPF (0-3) 04/01/20 10:07 Urine WBC 0-3 HPF (0-3) 04/01/20 10:07 Ur Squamous Epith Cells 0-3 HPF (0-3) 04/01/20 10:07 Urine Bacteria None Seen HPF (None Seen) 04/01/20 10:07 Hospitalist H&P A/P - Plan Plan: 64-year-old female with past medical history of atrial fibrillation on Xarelto, hypertension, hyperlipidemia, type 2 diabetes mellitus presents with vague epigastric pain and malaise over the past few days found to have elevated D-di khanh, troponin with negative CTA for PE, however lung findings consistent with COVID-19 pneumonia. Suspected COVID-19 pneumonia Patient presented with 4 days of generalized weakness and vague epigastric pain. Inflammatory markers elevated with troponin 0 0.034, D-dimer 0.65. CTA PE protocol was done to rule out pulmonary embolism which was negative, however did show bilateral patchy opacities concerning for COVID-19 pneumonia. Given patient's elevated inflammatory markers and CT findings high suspicion for COVID-19 pneumonia. Covid swab pending. Patient maintaining O2 saturation well on room air. Patient did receive Decadron in the emergency room. Plan Suspected Covid pneumonia Continue Decadron Covid swab pending Closely monitor respiratory status -Inflammatory markers Epigastric pain Which she describes as sore and extending up into her chest. She notes no relation to meals and reports that pain is worse with inspiration, will last for hours but intermittent. Nothing makes the pain better or worse. In emergency room EKG showed normal sinus rhythm, initial troponin 0 0.034. D-dimer elevated at 0.65. CTA PE negative. Patient received 325 mg of aspirin as well as Lovenox in the emergency room. Suspect elevated troponin is related to COVID-19 infection given CTA findings, however cannot rule out cardiac source at this time. Will trend troponin and admit to telemetry. Plan Telemetry monitoring, trend troponin -GI cocktail -Pantoprazole Nitropaste as needed Elevated troponin Troponin elevated to 0.034. Suspect likely mild leak related to atrial- fibrillation vs COVID-19 infection, however COVID-19 test still pending. CTA did show findings consistent with Covid. Patient however having vague epigastric pain. Will admit for chest pain rule out continue to monitor. Plan -Trend troponin -COVID pending -Telemetry monitory N.p.o. at midnight Atrial fibrillation History of atrial fibrillation on chronic Xarelto. Patient reports she did not take her Xarelto this morning. Patient did receive 1 mg/kg of Lovenox in the emergency room since D-dimer was elevated. CTA PE negative. EKG normal sinus rhythm with controlled ventricular rate. Patient is on home metoprolol. Plan Continue home metoprolol 12.5 mg Continue home Xarelto tomorrow. Telemetry monitoring Type 2 diabetes mellitus History of insulin-dependent type [address] patient on moderate insulin sliding scale and confirm insulin dosages. Carb consistent diet. Hypertension History of hypertension on home metoprolol and losartan/hydrochlorothiazide. We will continue once home dosages confirmed. Hyperlipidemia History of hyperlipidemia. Patient does not appear to be on a statin at this time. Will check lipid panel given patient's cardiac symptoms and start. Peripheral neuropathy History of peripheral neuropathy. On home gabapentin and Lyrica. We will continue. GERD History of GERD. On home famotidine. Will place on pantoprazole BID given epigastric pain. DVT prophylaxispatient received Lovenox, and is on Xarelto for A. fib. Jose lamar is medical decision-maker Case discussed with Dr. Lawrence.
[2020-04-01] MEDS ORDERED: Nitroglycerin 0.4 MG TAB (25 Tab Bottle) SL PRN (12:50)
[2020-04-01] MEDS ORDERED: HumaLOG 300 UNITS/3 ML VIAL SC PRN (12:53)
[2020-04-01] MEDS ORDERED: Dextrose 50% Abboject 50 ML SYRINGE SLOW IVP PRN (12:53)
[2020-04-01] MEDS ORDERED: Dextrose 5% in Water 1,000 ML IV PRN (12:53)
[2020-04-01] MEDS ORDERED: Ondansetron PF 4 MG/2 ML Vial IVP PRN (12:55)
[2020-04-01] MEDS ORDERED: Acetaminophen 325 MG TAB PO PRN (12:55)
[2020-04-01 13:00] LABS: Troponin I Less than 0.010 ng/mL (< 0.028)
[2020-04-01] MEDS ORDERED: Lidocaine 2% Viscous Solution 10 ML, Aluminum & Magnesium Hydroxide 30 ML SSW SCH (13:15)
[2020-04-01 13:33] LABS: Ferritin 306.22 ng/mL (10-291); Thyroid Stimulating Hormone 0.9507 uIU/mL (0.35-4.94)
[2020-04-01 14:31] VITALS: BMI 25.6
[2020-04-01 16:08] LABS: Troponin I 0.018 ng/mL (< 0.028)
[2020-04-01] MEDS: HumaLOG 300 UNITS/3 ML VIAL SC PRN (18:41)
[2020-04-01] MEDS: Pantoprazole 40 MG VIAL IVP SCH (20:02)
[2020-04-01] MEDS: Metoprolol Tartrate 25 MG TAB PO SCH (20:02)
[2020-04-02] MEDS: HumaLOG 300 UNITS/3 ML VIAL SC PRN (06:18)
[2020-04-02] MEDS ORDERED: Magnesium 2 GM/50 ML 2 GM in Premix Bag 1 BAG IVPB SCH (08:30)
[2020-04-02] MEDS ORDERED: Magnesium Sulfate 2 GM in Sodium Chloride 0.9% 100 ML IVPB SCH (08:30)
[2020-04-02] MEDS ORDERED: Non-Formulary Item 1 EACH (Rivaroxaban [Xarelto] 20 MG Tablet) PO SCH (09:00)
[2020-04-02] MEDS ORDERED: Non-Formulary Item 1 EACH (Levemir Flexpen [Levemir Flexpen] 100 UNITS/ML Pen) SC SCH (09:00)
[2020-04-02] MEDS ORDERED: Insulin Regular 300 UNITS/3 ML VIAL SC SCH ×2 (09:00)
[2020-04-02] MEDS ORDERED: Rivaroxaban 10 MG TAB PO SCH ×2 (09:00→17:00)
[2020-04-02] MEDS ORDERED: Insulin Glargine 20 UNITS in Pre-Filled Syringe 1 EACH SC SCH (09:00)
[2020-04-02] MEDS ORDERED: Pregabalin 50 MG CAP PO SCH (09:00)
[2020-04-02] MEDS ORDERED: Metoprolol Tartrate 25 MG TAB PO SCH (09:00)
[2020-04-02] MEDS: Pantoprazole 40 MG VIAL IVP SCH (10:12)
[2020-04-02] MEDS: Metoprolol Tartrate 25 MG TAB PO SCH (10:12)
[2020-04-02 10:28] LABS: SARS-CoV-2 MS2 Positive; SARS-CoV-2 N Gene Positive; SARS-CoV-2 S Gene Positive; SARS-CoV-2 by NAA DETECTED (NotDetected); SARS-CoV-2 orf1ab Positive
[2020-04-02 12:01] VITALS: BP 192/90; TEMP 98.1
[2020-04-02] MEDS ORDERED: FLU VACC QS2020-21(6MOS UP)/PF 60 MCG/0.5 ML SYRINGE IM ONE (14:45)
--- NOTE | 2020-04-02 18:46 | DIS ---
DATE OF ADMISSION: 04/01/2020 DATE OF DISCHARGE: 04/02/2020 DISCHARGE DIAGNOSES: As of the following; 1. Atypical chest pain, most likely epigastric related. 2. COVID pneumonia. 3. Atrial fibrillation on anticoagulation. 4. Diabetes. HOSPITAL COURSE: The patient is a 64-year-old female, who initially presented to the hospital with complaints of epigastric pain. She also has been having generalized malaise. At this time, a COVID test was positive. She had a CTA, which was negative for any PE. She had very mild CT findings of COVID. The patient at this time has not been on any oxygen. She had one mild troponin elevation of 0.034 and then the remaining two were normal. At this time, given her results of being COVID positive, we were unable to do any echo or stress test. I initially did order both of those. The patient will be discharged home. She will follow up with her Primary and also with her Cardiology in 2 to 3 weeks. She currently has no chest pain and no epigastric pain. She is able to tolerate her diet. I have spoken with the patient, explained to her and the patient's son. MEDICATIONS: The home medications will be; 1. Albuterol as needed. 2. Vitamin C and zinc. 3. Decadron 6 mg daily. 4. Pantoprazole 40 mg daily. 5. Gabapentin 100 mg twice a day. 6. Losartan/hydrochlorothiazide 1 daily. 7. Metoprolol 12.5 twice a day. 8. Zofran 4 mg as needed. 9. Lyrica one capsule t.i.d. 10. She is going to be on Levemir 20 units b.i.d. and Humalog as needed. 11. Xarelto 20 mg daily. PHYSICAL EXAMINATION: VITAL SIGNS: On discharge; temperature 98.1, heart rate 88, respiratory rate 20, O2 saturations 97% on room air, and blood pressure 145/99. GENERAL: She is awake, alert, and oriented x3. Does not appear in distress. CV: S1 and S2 present. No murmurs, rubs, or gallops. LUNGS: Clear to auscultation. No rhonchi or wheezes noted. Again, she will be discharged home. She will follow up with her Primary and also with Cardiology. The plan was discussed with the patient extensively and the patient's son was called and updated. Job ID: [id number]
[2020-04-03] MEDS ORDERED: Dexamethasone 4 MG TAB PO SCH (08:00)
== END 2020-04-02 14:50 | disposition home or self-care (01) | DRG 177 ==
LOC: ERS 09:31 → 2SW 14:03
PROVIDERS: ADMIT Internal Medicine; ATTEND Internal Medicine
PROC: 8E0ZXY6 Isolation (ICD-10-PCS; principal; 2020-04-01)
DX: U07.1 COVID-19 (principal); J12.89 Other viral pneumonia; Z23 Encounter for immunization; E78.5 Hyperlipidemia, unspecified; I10 Essential (primary) hypertension; E11.42 Type 2 diabetes mellitus with diabetic polyneuropathy; I48.91 Unspecified atrial fibrillation; K21.9 Gastro-esophageal reflux disease without esophagitis; R10.13 Epigastric pain; Z79.01 Long term (current) use of anticoagulants; Z79.4 Long term (current) use of insulin; Z90.49 Acquired absence of other specified parts of digestive tract; Z89.022 Acquired absence of left finger(s); Z79.899 Other long term (current) drug therapy
CPT/HCPCS: 36415; 36416; 71045; 71275; 80053; 81003; 81015; 82550; 82553; 82728; 83690; 83735; 83880; 84443; 84484; 85025; 85379; 85652; 86140; 87635; 90471; 90662; 93005; 94760; 96365; 96372; 96375; C9113; G0008; J0456; J0696; J1100; J1650; J1815; J3475; J3490; Q9967; U0003

== ENCOUNTER 2020-04-06 15:32 | Emergency (ER) | payer SELFPAY ==
[2020-04-06 16:38] LABS: Hemoglobin 15.2 g/dL (12.0-16.0); Mean Corpuscular HGB CONC 33.7 g/dL (32.0-36.0); Mean Corpuscular Hemoglobin 29.8 pg (27.0-31.0); Mean Corpuscular Volume 88.4 fL (78.0-98.0); Mean Platelet Volume 9.5 fL (7.4-10.4); Platelet Count 168 thou/uL (130-400); RBC Distribution Width 11.9 % (11.5-14.5)
--- NOTE | 2020-04-06 16:40 | RAD ---
EXAM: CHEST ONE VIEW HISTORY: Dizziness. Covid positive. Persistent headache for 3 days COMPARISON: 04/01/2020 FINDINGS: The cardiac silhouette and pulmonary vasculature are within normal limits. Minimal peripheral patchy densities are seen at the lateral aspect of the right midlung zone and right lung base with linear densities at the left lung base which are nonspecific but could be related to viral pneumonitis such as Covid 19. No pleural fluid is seen. No other interval change. IMPRESSION: Minimal patchy peripheral airspace densities lateral right lung base with linear densities at the lef t lung base. Findings could be related to viral pneumonitis such as Covid 19.
[2020-04-06 16:51] LABS: ALT (SGPT) 32 U/L (8-55); AST (SGOT) 17 U/L (5-34); Albumin 3.9 g/dL (3.4-4.8); Alkaline Phosphatase 85 U/L (40-110); Anion Gap 18 mmol/L (10-20); BUN (Urea Nitrogen) 24 mg/dL (9.8-20.1); Bilirubin, Total 0.4 mg/dL (0.2-1.2); Calc. Creatinine Clearance 0 mL/min (70-130); Calcium 9.5 mg/dL (7.8-10.44); Carbon Dioxide 26 mmol/L (23-31); Chloride 96 mmol/L (98-107); Globulin 3.8 g/dL (2.4-3.5); Glucose 509 mg/dL (80-115); Potassium 4.4 mmol/L (3.5-5.1); Protein, Total 7.7 g/dL (6.0-8.3); Sodium 136 mmol/L (136-145)
[2020-04-06 16:59] LABS: Band 9 % (5-11); Lymphocytes 12 % (21-51); MDiff Complete? YES; Monocytes 2 % (0-10); Neutrophil 72 % (42-75); Platelet Morphology Comment Appears Adequate; RBC Morphology Normal; Reactive Lymphocytes 5 % (0-10)
--- NOTE | 2020-04-06 17:08 | CT ---
CT BRAIN NONCONTRAST: DATE: 04/06/2020 HISTORY: 64-year-old female with dizziness and headache FINDINGS: There is no evidence of acute intra-axial or extra-axial hemorrhage. There is no midline shift or any other mass effect. There is no extra-axial fluid collection. There is no evidence of obstructive hydrocephalus. Calvarium is intact. IMPRESSION: No acute intracranial findings.
[2020-04-06 17:17] LABS: Bilirubin Negative (Negative); Blood, Urine Negative (Negative); Clarity Clear (Clear); Glucose, Urine (Dipstick) Greater than 1000 mg/dL (Negative); Ketone, Urine 80 mg/dL (Negative); Leukocyte Negative Leu/uL (Negative); Nitrite Negative (Negative); Protein, Urine (Dipstick) 10 mg/dL (Neg-Trace); Specific Gravity, Urine 1.038 (1.002-1.036); Urobilinogen Normal mg/dL (Less than 2)
[2020-04-06] MEDS ORDERED: Ketorolac Tromethamine 30 MG/ML VIAL ONE (17:26)
== END 2020-04-06 18:59 | disposition home or self-care (01) ==
LOC: ERS 15:32
DX: U07.1 COVID-19 (principal); E11.65 Type 2 diabetes mellitus with hyperglycemia; R42 Dizziness and giddiness; I48.91 Unspecified atrial fibrillation; Z79.899 Other long term (current) drug therapy
CPT/HCPCS: 70450; 71045; 80053; 81003; 84484; 85025; 93005; 96374; J1885

== ENCOUNTER 2020-04-12 00:45 | Emergency (ER) | payer SELFPAY ==
[2020-04-12] MEDS ORDERED: Acetaminophen 500 MG TAB ONE (01:29)
[2020-04-12] MEDS ORDERED: Ondansetron ODT 4 MG TAB ONE (01:29)
[2020-04-12] MEDS ORDERED: cloNIDine 0.1 MG TAB ONE (01:56)
== END 2020-04-12 03:36 | disposition home or self-care (01) ==
LOC: ERS 00:45
DX: U07.1 COVID-19 (principal); R51.9 Headache, unspecified; I10 Essential (primary) hypertension; I48.91 Unspecified atrial fibrillation; E11.9 Type 2 diabetes mellitus without complications; Z79.899 Other long term (current) drug therapy
CPT/HCPCS: 99283; Q0162

== ENCOUNTER 2020-05-06 16:09 | Emergency (ER) | payer SELFPAY ==
[2020-05-06 16:59] LABS: #Basophils 0.1 thou/uL (0.0-0.2); #Eosinphils 0.2 thou/uL (0.0-0.7); #Monocytes 0.4 thou/uL (0.11-0.59); #Neutrophils 2.8 thou/uL (1.40-6.50); %Basophils 1.3 % (0.0-1.0); %Eosinophils 2.6 % (0.0-10.0); %Lymphocytes 45.7 % (21.0-51.0); %Monocytes 6.6 % (0.0-10.0); %Neutrophils 43.8 % (42.0-75.0); Mean Corpuscular HGB CONC 33.7 g/dL (32.0-36.0); Mean Corpuscular Hemoglobin 29.4 pg (27.0-31.0); Mean Corpuscular Volume 87.2 fL (78.0-98.0); Mean Platelet Volume 8.1 fL (7.4-10.4); Platelet Count 244 thou/uL (130-400); RBC Distribution Width 12.4 % (11.5-14.5); Red Blood Cell (RBC) Count 4.75 mill/uL (4.20-5.40); White Blood Cell (WBC) Count 6.4 thou/uL (4.8-10.8)
[2020-05-06 17:14] LABS: Bilirubin Negative (Negative); Blood, Urine Negative (Negative); Clarity Clear (Clear); Glucose, Urine (Dipstick) Greater than 1000 mg/dL (Negative); Ketone, Urine Negative (Negative); Leukocyte Negative Leu/uL (Negative); Nitrite Negative (Negative); Protein, Urine (Dipstick) Negative (Neg-Trace); Urobilinogen Normal mg/dL (Less than 2); pH, Urine 5.5 (5.0-9.0)
[2020-05-06 17:22] LABS: ALT (SGPT) 59 U/L (8-55); AST (SGOT) 18 U/L (5-34); Albumin 3.8 g/dL (3.4-4.8); Alkaline Phosphatase 83 U/L (40-110); Anion Gap 14 mmol/L (10-20); BUN (Urea Nitrogen) 14 mg/dL (9.8-20.1); Bilirubin, Total 0.4 mg/dL (0.2-1.2); Calc. Creatinine Clearance 0 mL/min (70-130); Calcium 9.3 mg/dL (7.8-10.44); Carbon Dioxide 28 mmol/L (23-31); Chloride 97 mmol/L (98-107); Globulin 3.6 g/dL (2.4-3.5); Glucose 347 mg/dL (80-115); Lipase 16 U/L (8-78); Protein, Total 7.4 g/dL (6.0-8.3); Sodium 135 mmol/L (136-145)
[2020-05-06 20:04] LABS: Lactic Acid 2.8 mmol/L (0.5-2.2)
--- NOTE | 2020-05-06 20:55 | CT ---
CT ABDOMEN AND PELVIS WITH IV CONTRAST 05/06/2020 CLINICAL INFORMATION: Upper abdominal pain. Nausea and chills. COMPARISON: 04/18/[address] abdomen and pelvis on 08/13/2019 Technique: Multiple contiguous axial CT images are obtained through the abdomen and pelvis with IV contrast. Cor onal reformatted images are provided. FINDINGS: Lower Chest: Minimal groundglass densities are present at the right lung base. Findings may be relate d to atelectasis, but pneumonitis cannot be excluded. Vessels: Vascular calcifications are seen in the abdominal aorta and iliac arteries. Abdomen: Portal vein:Patent Gallbladder: Surgically absent. Liver: Diminished attenuation suggesting mild fatty infiltration. Spleen: within normal limits. Pancreas: within normal limits. Adrenals: within normal limits. Kidneys: Again noted is a superior pole right renal cyst unchanged compared to prior studies. Bowel: Scattered colonic diverticuli are visualized. Loops of small bowel are normal in caliber. Appendix: The appendix is visualized and normal in caliber. Peritoneum: No ascites or free air; no fluid collection. Mesentery and Retroperitoneum: No enlarged mesenteric or retroperitoneal lymph nodes. Abdominal Wall: Minimal stranding is seen within the anterior abdominal adipose tissues on either gogo e of the umbilicus which may related to site of prior injections there is punctate focus of gas seen on the left. Pelvis: Reproductive Organs: No pelvic masses. Bladder: within normal limits. Bones: Degenerative changes are again seen in the spine. IMPRESSION: 1. Minimal groundglass densities at the right lung base. Findings could be related to atelectasis, bu t groundglass opacities related to pneumonitis such as Covid 19 are a possibility. 2. Stable right renal cyst. 3. Hepatic steatosis. 4. Postcholecystectomy changes. 5. Colonic diverticulosis.
== END 2020-05-06 22:25 | disposition home or self-care (01) ==
LOC: ERS 16:09
DX: R10.13 Epigastric pain (principal); R10.10 Upper abdominal pain, unspecified; E87.2 Acidosis; Z79.899 Other long term (current) drug therapy; I48.91 Unspecified atrial fibrillation; E11.9 Type 2 diabetes mellitus without complications
CPT/HCPCS: 36415; 74177; 80053; 81003; 83605; 83690; 85025; Q9967

== ENCOUNTER 2020-08-07 18:34 | Emergency (ER) | payer OTHER, SELFPAY ==
[2020-08-07 19:21] LABS: #Basophils 0.1 thou/uL (0.0-0.2); #Eosinphils 0.1 thou/uL (0.0-0.7); #Lymphocytes 2.6 thou/uL (1.20-3.40); #Monocytes 0.3 thou/uL (0.11-0.59); %Basophils 0.7 % (0.0-1.0); %Eosinophils 0.8 % (0.0-10.0); %Lymphocytes 37.1 % (21.0-51.0); %Monocytes 4.6 % (0.0-10.0); %Neutrophils 56.8 % (42.0-75.0); Hemoglobin 14.1 g/dL (12.0-16.0); Mean Corpuscular HGB CONC 34.2 g/dL (32.0-36.0); Mean Corpuscular Hemoglobin 29.8 pg (27.0-31.0); Mean Corpuscular Volume 87.1 fL (78.0-98.0); Mean Platelet Volume 8.2 fL (7.4-10.4); Platelet Count 190 thou/uL (130-400); RBC Distribution Width 11.7 % (11.5-14.5); Red Blood Cell (RBC) Count 4.74 mill/uL (4.20-5.40)
[2020-08-07 19:42] LABS: ALT (SGPT) 41 U/L (8-55); AST (SGOT) 20 U/L (5-34); Albumin 4.2 g/dL (3.4-4.8); Alkaline Phosphatase 91 U/L (40-110); Anion Gap 15 mmol/L (10-20); BUN (Urea Nitrogen) 15 mg/dL (9.8-20.1); Bilirubin, Total 0.7 mg/dL (0.2-1.2); Calc. Creatinine Clearance 0 mL/min (70-130); Calcium 9.4 mg/dL (7.8-10.44); Carbon Dioxide 27 mmol/L (23-31); Chloride 98 mmol/L (98-107); Globulin 3.3 g/dL (2.4-3.5); Glucose 294 mg/dL (80-115); Lipase 8 U/L (8-78); Protein, Total 7.5 g/dL (5.8-8.1); Sodium 136 mmol/L (136-145)
[2020-08-07] MEDS ORDERED: Ondansetron ODT 4 MG TAB ONE (19:56)
[2020-08-07 20:08] LABS: Bacteria/HPF None Seen HPF (None Seen); Bilirubin Negative (Negative); Blood, Urine Negative (Negative); Clarity Clear (Clear); Glucose, Urine (Dipstick) Greater than 1000 mg/dL (Negative); Ketone, Urine Greater than 150 mg/dL (Negative); Leukocyte 25 Leu/uL (Negative); Nitrite Negative (Negative); Protein, Urine (Dipstick) 20 mg/dL (Neg-Trace); Squamous Epithelial None Seen HPF (0-3); Urobilinogen Normal mg/dL (Less than 2)
[2020-08-07] MEDS ORDERED: Acetaminophen 500 MG TAB ONE (20:46)
== END 2020-08-07 20:58 | disposition home or self-care (01) ==
LOC: ERS 18:34
DX: R51.9 Headache, unspecified (principal); R10.10 Upper abdominal pain, unspecified; I48.91 Unspecified atrial fibrillation; E11.9 Type 2 diabetes mellitus without complications; Z79.899 Other long term (current) drug therapy; Z79.4 Long term (current) use of insulin
CPT/HCPCS: 36415; 80053; 81003; 81015; 83690; 85025; 87086; 99284; Q0162

== ENCOUNTER 2021-01-21 10:34 | Emergency (ER) | payer SELFPAY ==
[2021-01-21 11:34] LABS: #Basophils 0.1 thou/uL (0.0-0.2); #Eosinphils 0.2 thou/uL (0.0-0.7); #Lymphocytes 2.4 thou/uL (1.20-3.40); #Monocytes 0.5 thou/uL (0.11-0.59); #Neutrophils 3.8 thou/uL (1.40-6.50); %Basophils 0.9 % (0.0-1.0); %Eosinophils 2.5 % (0.0-10.0); %Monocytes 6.6 % (0.0-10.0); Hemoglobin 13.8 g/dL (12.0-16.0); Mean Corpuscular HGB CONC 34.9 g/dL (32.0-36.0); Mean Corpuscular Hemoglobin 30.6 pg (27.0-31.0); Mean Corpuscular Volume 87.5 fL (78.0-98.0); Mean Platelet Volume 9.1 fL (7.4-10.4); Platelet Count 181 thou/uL (130-400); RBC Distribution Width 11.5 % (11.5-14.5); White Blood Cell (WBC) Count 6.9 thou/uL (4.8-10.8)
[2021-01-21 12:03] LABS: Bilirubin Negative (Negative); Blood, Urine Negative (Negative); Clarity Clear (Clear); Glucose, Urine (Dipstick) Greater than 1000 mg/dL (Negative); Ketone, Urine Trace mg/dL (Negative); Leukocyte Negative Leu/uL (Negative); Nitrite Negative (Negative); Protein, Urine (Dipstick) 10 mg/dL (Neg-Trace); Specific Gravity, Urine 1.028 (1.002-1.036); Urobilinogen Normal mg/dL (Less than 2); pH, Urine 5.5 (5.0-9.0)
[2021-01-21 12:47] LABS: Albumin 4.2 g/dL (3.4-4.8)
[2021-01-21 12:48] LABS: Chloride 98 mmol/L (98-107); Potassium 4.7 mmol/L (3.5-5.1); Sodium 134 mmol/L (136-145)
[2021-01-21 12:49] LABS: Calcium 9.4 mg/dL (7.8-10.44)
[2021-01-21 12:50] LABS: Globulin 2.9 g/dL (2.4-3.5); Protein, Total 7.1 g/dL (5.8-8.1)
[2021-01-21 12:51] LABS: Anion Gap 16 mmol/L (10-20); Bilirubin, Total 0.6 mg/dL (0.2-1.2); Carbon Dioxide 25 mmol/L (23-31)
[2021-01-21 12:52] LABS: Alkaline Phosphatase 98 U/L (40-110)
[2021-01-21 12:53] LABS: Calc. Creatinine Clearance 0 mL/min (70-130)
[2021-01-21 12:54] LABS: BUN (Urea Nitrogen) 18 mg/dL (9.8-20.1)
[2021-01-21 12:55] LABS: AST (SGOT) 20 U/L (5-34)
[2021-01-21] MEDS ORDERED: Pantoprazole 40 MG VIAL ONE (12:55)
[2021-01-21] MEDS ORDERED: Ondansetron PF 4 MG/2 ML Vial ONE (12:55)
[2021-01-21 12:56] LABS: Lipase 14 U/L (8-78)
[2021-01-21 12:57] LABS: Glucose 371 mg/dL (80-115)
[2021-01-21 13:44] LABS: ALT (SGPT) 30 U/L (8-55)
[2021-01-21] MEDS ORDERED: Iopamidol-370 76% 500 ML 1 ML ONE (15:35)
== END 2021-01-21 15:45 | disposition home or self-care (01) ==
LOC: ERS 10:34
DX: K29.70 Gastritis, unspecified, without bleeding (principal); E11.9 Type 2 diabetes mellitus without complications
CPT/HCPCS: 36415; 36416; 71045; 74177; 80053; 81003; 83690; 84484; 85025; 93005; 96374; 96375; C9113; J2405; Q9967

== ENCOUNTER 2021-02-11 14:17 | Emergency (ER) | payer SELFPAY | END 2021-02-11 16:38 | disposition home or self-care (01) | LOC: ERS 14:17 | DX: J06.9 Acute upper respiratory infection, unspecified (principal); Z79.899 Other long term (current) drug therapy; Z79.4 Long term (current) use of insulin; I48.91 Unspecified atrial fibrillation; E11.9 Type 2 diabetes mellitus without complications | CPT/HCPCS: 71045 ==

== ENCOUNTER 2022-01-05 17:01 | Inpatient (IN) | payer MEDICARE, OTHER ==
[2022-01-05] MEDS ORDERED: Nitroglycerin 0.4 MG TAB (25 Tab Bottle) SL PRN (17:18)
[2022-01-05 17:55] VITALS: BMI 29.0
[2022-01-06] MEDS: Acetaminophen 325 MG TAB PO PRN (01:49)
[2022-01-06] MEDS: Aspirin 81 mg Enteric Coated Tablet PO SCH (07:58)
[2022-01-06] MEDS ORDERED: ADENOSINE 60 MG/20 ML VIAL ONE (08:54)
[2022-01-06] MEDS ORDERED: Iopamidol-370 76% 500 ML 1 ML ONE (09:35)
[2022-01-07] MEDS: Aspirin 81 mg Enteric Coated Tablet PO SCH (08:48)
[2022-01-07] MEDS: Acetaminophen 325 MG TAB PO PRN (08:48)
[2022-01-07 16:10] VITALS: BP 179/81; TEMP 98.5
[2022-01-07] MEDS ORDERED: Ondansetron ODT 4 MG TAB PO PRN (17:14)
== END 2022-01-07 18:17 | disposition home or self-care (01) | DRG 313 ==
LOC: 2SW 17:01 → OBSVTOIN 01-07 09:59
PROVIDERS: ADMIT Internal Medicine; ATTEND Student in an Organized Health Care Education/Training Program
DX: R07.89 Other chest pain (principal); R10.9 Unspecified abdominal pain; E11.9 Type 2 diabetes mellitus without complications; I48.91 Unspecified atrial fibrillation; Z20.822 Contact with and (suspected) exposure to COVID-19; N28.1 Cyst of kidney, acquired; Z79.4 Long term (current) use of insulin; Z79.899 Other long term (current) drug therapy; Z89.022 Acquired absence of left finger(s); Z90.49 Acquired absence of other specified parts of digestive tract; Z82.49 Family history of ischemic heart disease and other diseases of the circulatory system
CPT/HCPCS: 36415; 71275; 74177; 78452; 85379; 93017; 94760; A9500; G0378; J0153; Q9967

== ENCOUNTER 2023-02-27 07:55 | Emergency (ER) | payer MEDICARE, SELFPAY ==
[2023-02-27 08:20] LABS: #Eosinphils 0.1 thou/uL (0.0-0.7); #Monocytes 0.5 thou/uL (0.11-0.59); #Neutrophils 5.2 thou/uL (1.40-6.50); %Basophils 0.4 % (0.0-1.0); %Eosinophils 1.1 % (0.0-10.0); %Lymphocytes 28.4 % (21.0-51.0); %Monocytes 5.8 % (0.0-10.0); %Neutrophils 64.2 % (42.0-75.0); Hematocrit 39.2 % (36.0-47.0); Hemoglobin 13.2 g/dL (12.0-16.0); Mean Corpuscular HGB CONC 33.7 g/dL (32.0-36.0); Mean Corpuscular Hemoglobin 29.5 pg (27.0-31.0); Mean Corpuscular Volume 87.7 fl (78.0-98.0); Mean Platelet Volume 10.8 fL (7.4-10.4); Platelet Count 200 10x3/uL (130-400); RBC Distribution Width 12.6 % (11.5-14.5); Red Blood Cell (RBC) Count 4.47 mill/uL (4.20-5.40); White Blood Cell (WBC) Count 8.1 10x3/uL (4.8-10.8)
[2023-02-27 08:41] LABS: ALT (SGPT) 21 U/L (8-55); AST (SGOT) 16 U/L (5-34); Albumin 4.5 g/dL (3.4-4.8); Alkaline Phosphatase 95 U/L (40-110); Anion Gap 12 mmol/L (10-20); BUN (Urea Nitrogen) 15 mg/dL (9.8-20.1); Bilirubin, Total 0.4 mg/dL (0.2-1.2); Calc. Creatinine Clearance 0 mL/min (70-130); Calcium 9.7 mg/dL (7.8-10.44); Carbon Dioxide 24 mmol/L (23-31); Chloride 104 mmol/L (98-107); Estimated GFR 95; Globulin 2.9 g/dL (2.4-3.5); Glucose 210 mg/dL (80-115); Potassium 4.1 mmol/L (3.5-5.1); Protein, Total 7.4 g/dL (5.8-8.1); Sodium 136 mmol/L (136-145)
[2023-02-27] MEDS ORDERED: Iopamidol-370 76% 500 ML MDV (1 ML CHARGE) ONE (09:37)
[2023-02-27] MEDS ORDERED: Proparacaine 0.5% Opth 15 ML BOT ONE (10:00)
== END 2023-02-27 10:44 | disposition home or self-care (01) ==
LOC: ERS 07:55
DX: H43.12 Vitreous hemorrhage, left eye (principal); I48.91 Unspecified atrial fibrillation; E11.9 Type 2 diabetes mellitus without complications; I10 Essential (primary) hypertension; E78.5 Hyperlipidemia, unspecified; Z79.01 Long term (current) use of anticoagulants; Z79.4 Long term (current) use of insulin; Z79.899 Other long term (current) drug therapy
CPT/HCPCS: 36416; 70450; 70496; 70498; 80053; 85025; Q9967